=== PATIENT | male | born 1960 | race Caucasian/White ===

== ENCOUNTER 2017-03-04 21:07 | Observation (INO) | payer OTHER ==
[2017-03-04 21:26] LABS: % IMMATURE GRANULYOCYTES 0.5 % (0.0-1.1); ABSOLUTE IMMATURE GRANULOCYTES 0.05 10^3/uL (0.00-0.10); ADD DIFF? NO; ADD MORPH? NO; ADD SCAN? YES; FRAGMENT RBC FLAG 0 (0-99); HEMATOCRIT 40.8 % (40.0-51.0); HEMOGLOBIN 13.7 g/dL (13.7-17.5); LEFT SHIFT FLG 0 (0-99); LIPEMIA HEMOLYSIS FLAG 80 (0-99); MEAN CELL HEMOGLOBIN 29.4 pg (27.9-34.1); MEAN CELL HEMOGLOBIN CONCENTR. 33.6 g/dL (32.4-36.7); MEAN CELL VOLUME 87.6 fL (81.5-99.8); PLATELET CLUMPS FLAG 10 (0-99); PLATELET COUNT 333 10^3/uL (150-400); RED BLOOD CELL COUNT 4.66 10^6/uL (4.40-6.38); RED CELL DISTRIBUTION WIDTH 13.1 % (11.5-15.2)
[2017-03-04] MEDS ORDERED: ASPIRIN 81 MG CHEWABLE TAB PO ONE (21:29)
[2017-03-04] MEDS ORDERED: NITROGLYCERIN 0.4 MG BTL SL ONE ×2 (21:30→22:44)
--- NOTE | 2017-03-04 21:33 | EDPHY ---
H & P Stated Complaint: CP Time Seen by Provider: 03/04/17 21:18 HPI/ROS: CHIEF COMPLAINT: Chest pressure and tightness HISTORY OF PRESENT ILLNESS: Patient is a 56-year-old diabetic man who comes to the emergency department complaining of chest pressure and tightness for the last 2 days and now mild shortness of breath. He does not have any history of cardiac disease but both mom and dad in their 60s with heart attacks. He also travels frequently and was in [place] last week in [place] the week before. He intermittently has had leg swelling but no pain. He has not been febrile. He has not been coughing. He does not have any pulmonary disease history. He does have a history of renal cancer that was removed by surgery only in June of last year. He is not a smoker. REVIEW OF SYSTEMS: Constitutional: denies: chills, fever, recent illness, recent injury EENTM: denies: blurred vision, double vision, nose congestion Respiratory: See HPI Cardiac: See HPI Gastrointestinal/Abdominal: denies: abdominal pain, diarrhea, nausea, vomiting, blood streaked stools Genitourinary: denies: dysuria, frequency, hematuria, pain Musculoskeletal: denies: joint pain, muscle pain Skin: denies: lesions, rash, jaundice, bruising Neurological: denies: headache, numbness, paresthesia, tingling, dizziness, weakness Hematologic/Lymphatic: denies: blood clots, easy bleeding, easy bruising Immunologic/allergic: denies: HIV/AIDS, transplant EXAM: GENERAL: Well-appearing, well-nourished and in no acute distress. HEAD: Atraumatic, normocephalic. EYES: Pupils equal round and reactive to light, extraocular movements intact, sclera anicteric, conjunctiva are normal. ENT: TMs normal, nares patent, oropharynx clear without exudates. Moist mucous membranes. NECK: Normal range of motion, supple without lymphadenopathy or JVD. LUNGS: Breath sounds clear to auscultation bilaterally and equal. No wheezes rales or rhonchi. HEART: Regular rate and rhythm without murmurs, rubs or gallops. ABDOMEN: Soft, nontender, normoactive bowel sounds. No guarding, no rebound. No masses appreciated. BACK: No CVA tenderness, no spinal tenderness, step-offs or deformities EXTREMITIES: Normal range of motion, no pitting or edema. No clubbing or cyanosis. NEUROLOGICAL: Cranial nerves II through XII grossly intact. Normal speech, normal gait. 5/5 strength, normal movement in all extremities, normal sensation PSYCH: Normal mood, normal affect. SKIN: Warm, dry, normal turgor, no visible rashes or lesions. Source: Patient Exam Limitations: No limitations - Personal History Current Tetanus/Diphtheria Vaccine: Yes Current Tetanus Diphtheria and Acellular Pertussis (TDAP): Yes - Medical/Surgical History Hx Asthma: No Hx Chronic Respiratory Disease: No Hx Diabetes: Yes Hx Cardiac Disease: No Hx Renal Disease: Yes Hx Cirrhosis: No Hx Alcoholism: No Hx HIV/AIDS: No Hx Splenectomy or Spleen Trauma: No Other PMH: kidney CA, ortho surg/l knee DM - Family History Significant Family History: Heart disease - Social History Smoking Status: Never smoked Alcohol Use: Sober Drug Use: None Constitutional: Initial Vital Signs Temperature (C) 36.6 C 03/04/17 21:13 Heart Rate 99 03/04/17 21:13 Respiratory Rate 22 H 03/04/17 21:13 Blood Pressure 181/111 H 03/04/17 21:13 O2 Sat (%) 93 03/04/17 21:13 O2 Delivery Mode Nasal Cannula O2 (L/minute) 2 Allergies/Adverse Reactions: Penicillins Allergy (Severe, Verified 03/04/17 21:11) STOPPED BREATHING erythromycin base [Erythromycin Base] Allergy (Intermediate, Verified 03/04/17 21:11) Rash hydromorphone HCl [From Dilaudid] Allergy (Intermediate, Verified 03/04/17 21:11 ) Itching Sulfa (Sulfonamide Antibiotics) Allergy (Intermediate, Verified 03/04/17 21:11) Rash Home Medications: Medication Instructions Recorded Ascorbic Acid [Vitamin C 500 mg 1,000 mg PO DAILY 06/16/16 (*)] Atorvastatin Calcium [Lipitor 20 20 mg PO DAILY 06/16/16 mg (*)] Cholecalciferol Vit D3 [Vitamin D3 4,000 units PO DAILY 06/16/16 2000 units tab (OTC)] Esomeprazole Mag Trihydrate 40 mg PO DAILY 06/16/16 [Nexium] Glucosamine/Chondroitin 1 each PO DAILY 06/16/16 [Glucosamine/Chondroitin (*)] Herbals/Supplements -Info Only 1 ea PO DAILY 06/16/16 Magnesium Oxide [Magnesium Oxide 400 mg PO DAILY 06/16/16 400 mg (*)] [place]-3 Fatty Acids [Fish Oil 1000 2,000 mg PO DAILY 06/16/16 mg (*)] Vitamin B Complex [Super B-50 1 each PO DAILY 06/16/16 Complex] Insulin Glargine [Lantus 100 42 units SC HS 06/22/16 UNITS/ML (*)] Exenatide Microspheres [Bydureon 2 mg SQ SA 03/04/17 Pen] Lisinopril [Zestril 5 mg (*)] 5 mg PO DAILY 03/05/17 metFORMIN HCL [Glucophage 500 mg 500 mg PO BIDMEAL 03/05/17 (*)] Acetaminophen [Tylenol 325mg (*)] 650 mg PO Q4HRS PRN #0 tab 03/06/17 Prasugrel HCl [Effient 10mg (*)] 10 mg PO DAILY #30 tab 03/06/17 Medical Decision Making - Diagnostics EKG Interpretation: An EKG obtained and was read and documented in trace view. Please see trace view for full reading and report. Sinus rhythm, no acute ischemic changes ED Course/Re-evaluation: The patient's symptoms have improved. His blood pressure is improved. He still has mild tightness. I recommended admission for continued cardiac rule out and stress testing. He agrees with this plan. I have paged hospital service for admission. Differential Diagnosis: Partial list of the Differential diagnosis considered include but were not limited to; acute coronary disease, PE, and although unlikely based on the history and physical exam, I also considered pneumothorax, pneumonia, GERD, anxiety. I discussed these differential diagnoses and the plan with the patient as well as the usual and expected course. The patient understands that the diagnosis is provisional and that in medicine we are not always correct and that further workup is often warranted. Usual and customary warnings were given. All of the patient's questions were answered. The patient was instructed to return to the emergency department should the symptoms at all worsen or return, otherwise to followup with the physician as we discussed. - Data Points Laboratory Results: Laboratory Results 03/04/17 21:15 03/04/17 21:15 Medications Given: Discontinued Medications Aspirin (Aspirin) 162 mg PO EDNOW ONE Stop: 03/04/17 21:30 Last Admin: 03/04/17 21:34 Dose: 162 mg Aspirin Buffered (Aspirin Ec) 325 mg PO DAILY WILLIAN Stop: 09/01/17 08:59 Last Admin: 03/06/17 08:24 Dose: Not Given Diazepam (Valium) 5 mg PO ONCALL ONE Stop: 03/05/17 09:49 Last Admin: 03/05/17 10:26 Dose: 5 mg Diphenhydramine HCl (Benadryl) 25 mg PO ONCALL ONE Stop: 03/05/17 09:49 Last Admin: 03/05/17 10:27 Dose: 25 mg Sodium Chloride (Ns) 1,000 mls @ 100 mls/hr IV CONT WILLIAN Stop: 03/05/17 22:44 Last Admin: 03/05/17 13:49 Dose: 1,000 mls Magnesium Sulfate (Magnesium Sulf 2 Gm (Premix)) 50 mls @ 50 mls/hr IV ONCE ONE Stop: 03/06/17 08:56 Last Admin: 03/06/17 08:16 Dose: 50 mls Metoprolol Tartrate (Lopressor) 12.5 mg PO EDNOW ONE Stop: 03/04/17 22:43 Last Admin: 03/05/17 00:36 Dose: Not Given Metoprolol Tartrate (Lopressor) 12.5 mg PO ONCE ONE Stop: 03/05/17 00:27 Last Admin: 03/05/17 00:48 Dose: 12.5 mg Nitroglycerin (Nitrostat) 0.4 mg SL EDNOW ONE Stop: 03/04/17 21:31 Last Admin: 03/04/17 21:35 Dose: 0.4 mg Nitroglycerin (Nitrostat) 0.4 mg SL EDNOW ONE Stop: 03/04/17 22:45 Last Admin: 03/04/17 22:48 Dose: 0.4 mg Prasugrel (Effient) 60 mg PO ONCE ONE Stop: 03/05/17 12:36 Last Admin: 03/05/17 13:49 Dose: Not Given Departure - Departure Disposition: [facility] Acute Clinical Impression: Chest pain Qualifiers: Chest pain type: unspecified Qualified Code(s): R07.9 - Chest pain, unspecified Condition: Fair
[2017-03-04 21:36] LABS: ANION GAP 14 mEq/L (8-16); ATYPICAL LYMPHOCYTE FLAG 150 (0-99); CALCIUM 9.6 mg/dL (8.5-10.4); CARBON DIOXIDE 23 mEq/l (22-31); CHLORIDE 100 mEq/L (97-110); CREATININE 1.6 mg/dL (0.7-1.3); GLOMERULAR FILTRATION RATE 45; GLUCOSE 341 mg/dL (70-100); POTASSIUM 4.4 mEq/L (3.5-5.2); SODIUM 137 mEq/L (134-144)
[2017-03-04 21:47] LABS: SCAN NEGATIVE; TROPONIN I < 0.012 ng/mL (0-0.034)
[2017-03-04 22:05] LABS: INR 0.98 (0.83-1.16); PROTIME(PATIENT) 12.9 SEC (12.0-15.0)
[2017-03-04 22:06] LABS: ALBUMIN 4.4 g/dL (3.5-5.0); APTT 29.7 SEC (23.0-38.0); BILIRUBIN,TOTAL 1.6 mg/dL (0.1-1.4); BILIRUBIN-CONJUGATED 0.6 mg/dL (0.0-0.5); TOTAL PROTEIN 7.9 g/dL (6.3-8.2)
[2017-03-04] MEDS ORDERED: METOPROLOL TARTRATE 25 MG TAB PO ONE (22:42)
[2017-03-04] MEDS ORDERED: NITROGLYCERIN 0.4 MG BTL SL PRN (23:08)
[2017-03-05] MEDS ORDERED: ACETAMINOPHEN 325 MG TAB PO PRN (00:22)
[2017-03-05] MEDS ORDERED: ONDANSETRON DISINTEGRATING 4 MG TAB PO PRN (00:22)
[2017-03-05] MEDS ORDERED: ONDANSETRON 4 MG/2 ML VIAL IVP PRN (00:22)
[2017-03-05] MEDS ORDERED: METOPROLOL TARTRATE 25 MG TAB PO ONE (00:26)
[2017-03-05] MEDS ORDERED: NITROGLYCERIN 0.4 MG BTL SL PRN (00:26)
--- NOTE | 2017-03-05 00:33 | PDGENHP ---
History and Physical - Chief Complaint Acute chest pain - History of Present Illness PCP: Dr. Paz Primary urologist: Dr. Kumar HPI: 56-year-old male presenting with acute chest pain characterized as pressure and tightness located in his central chest with associated shortness of breath, pain located in his left shoulder radiating down his left arm with subjective weakness in his left hand and paresthesias in his bilateral feet. Onset of symptoms was 2 days ago, occurring at rest, duration has been fairly constant thereafter with escalation of symptoms on the evening prior to this presentation. He reports that the chest discomfort has been significantly alleviated by sublingual nitroglycerin as well as full-dose aspirin but the left arm deep discomfort remains. He denies any overt pain in the posterior aspect of his neck and he denies any recent trauma to the neck chest or extremity. He reports that he is not particularly physically active at baseline and does not significantly exert himself but he does ambulate very regularly and does not experience any chest discomfort. He has recently re-initiated his metformin, avoid nonsteroidal anti- inflammatory medications, has been taking full-dose aspirin at home. History Information - Allergies/Home Medication List Allergies/Adverse Reactions: Penicillins Allergy (Severe, Verified 03/04/17 21:11) STOPPED BREATHING erythromycin base [Erythromycin Base] Allergy (Intermediate, Verified 03/04/17 21:11) Rash hydromorphone HCl [From Dilaudid] Allergy (Intermediate, Verified 03/04/17 21:11 ) Itching Sulfa (Sulfonamide Antibiotics) Allergy (Intermediate, Verified 03/04/17 21:11) Rash Home Medications: Ascorbic Acid [Vitamin C 500 mg (*)] 1,000 mg PO DAILY 06/16/16 [Last Taken ] Aspirin [Aspirin 81mg (*)] 81 mg PO DAILY 06/16/16 [Last Taken 07/16/16] Atorvastatin Calcium [Lipitor 20 mg (*)] 20 mg PO DAILY 06/16/16 [Last Taken ] Cholecalciferol Vit D3 [Vitamin D3 2000 units tab (OTC)] 4,000 units PO DAILY [Last Taken 07/16/16] Esomeprazole Mag Trihydrate [Nexium] 40 mg PO DAILY 06/16/16 [Last Taken ] Glucosamine/Chondroitin [Glucosamine/Chondroitin (*)] 1 each PO DAILY 06/16/16 [ Last Taken 07/16/16] Herbals/Supplements -Info Only 1 ea PO DAILY 06/16/16 [Last Taken 07/16/16] Lisinopril [Zestril 10 mg (*)] 10 mg PO HS 06/16/16 [Last Taken 07/18/16] Magnesium Oxide [Magnesium Oxide 400 mg (*)] 400 mg PO DAILY 06/16/16 [Last Taken 07/16/16] [place]-3 Fatty Acids [Fish Oil 1000 mg (*)] 2,000 mg PO DAILY 06/16/16 [Last Taken 07/16/16] Vitamin B Complex [Super B-50 Complex] 1 each PO DAILY 06/16/16 [Last Taken ] Insulin Glargine [Lantus 100 UNITS/ML (*)] 42 units SC HS 06/22/16 [Last Taken 07/18/16] Bydureon Pen 03/04/17 [Last Taken Unknown] I have personally reviewed and updated: family history, medical history, social history, surgical history - Past Medical History diabetes type 2 ( With poor control, most recent hemoglobin A1c 9.6%), GERD Additional medical history: renal cell carcinoma. History of diverticulitis. History of chronic kidney disease baseline creatinine 1.11.5. History of C diff colitis - Surgical History Additional surgical history: right partial nephrectomy. Knee surgery - Family History Additional family history: father with TN at age 45, mother with TN at age 61 - Social History Smoking Status: Never smoked Alcohol Use: Occasionally Drug Use: None Additional social history: normally independent in ADLs, travels extensively for work Review of Systems ROS: 10pt was reviewed & negative except for what was stated in HPI & below EENMT: Reports: sore throat Cardiac: Reports: chest pain Respiratory: Reports: shortness of breath Muscolosketal: Reports: other ( left upper extremity pain) Neurological: Reports: paresthesia ( bilateral feet), weakness ( subjective left upper extremity) Physical Exam Temp Pulse Resp BP Pulse Ox 36.6 C 87 16 127/90 H 94 03/04/17 23:55 03/04/17 23:55 03/04/17 23:55 03/04/17 23:55 03/04/17 23:55 O2 (L/minute) 2 Constitutional: no apparent distress, appears nourished, not in pain Eyes: PERRL, anicteric sclera, EOMI Ears, Nose, Mouth, Throat: moist mucous membranes, hearing normal, ears appear normal, no oral mucosal ulcers Cardiovascular: systolic murmur ( 1/6 at the sternum), No irregularly irregular , No tachycardia, No edema Respiratory: no respiratory distress, no rales or rhonchi, clear to auscultation Gastrointestinal: normoactive bowel sounds, soft, non-tender abdomen, no palpable masses Genitourinary: no bladder fullness, no bladder tenderness Skin: other ( no vesicular lesions or rash over the left upper extremity or chest) Musculoskeletal: other ( full range of motion left shoulder without any pain elicited, no tenderness to palpation over the left sub a.c., full range of motion of the neck without any pain elicited, no tenderness to palpation over the left trapezius or paraspinal muscles in the cervical area, full range of motion left elbow and left wrist without any pain elicited, no tenderness to palpation in the left forearm muscles or the left biceps) Neurologic: AAOx3, sensation intact bilaterally, No weakness ( motor strength 5/ 5 bilateral upper and lower extremities) Psychiatric: interacting appropriately, not anxious, not encephalopathic, thought process linear Lymph, Heme, Immunologic: no cervical LAD, other ( less than 1 cm tender bilateral submandibular lymph nodes) Lab Data & Imaging Review 03/04/17 21:15 03/04/17 21:15 WBC 9.45 10^3/uL (3.80-9.50) 03/04/17 21:15 RBC 4.66 10^6/uL (4.40-6.38) 03/04/17 21:15 Hgb 13.7 g/dL (13.7-17.5) 03/04/17 21:15 Hct 40.8 % (40.0-51.0) 03/04/17 21:15 MCV 87.6 fL (81.5-99.8) 03/04/17 21:15 MCH 29.4 pg (27.9-34.1) 03/04/17 21:15 MCHC 33.6 g/dL (32.4-36.7) 03/04/17 21:15 RDW 13.1 % (11.5-15.2) 05/14/17 21:15 Plt Count 333 10^3/uL (150-400) 03/04/17 21:15 MPV 9.0 fL (8.7-11.7) 03/04/17 21:15 Neut % (Auto) 46.0 % (39.3-74.2) 03/04/17 21:15 Lymph % (Auto) 41.7 % (15.0-45.0) 03/04/17 21:15 [place] % (Auto) 9.3 % (4.5-13.0) 03/04/17 21:15 Eos % (Auto) 2.0 % (0.6-7.6) 03/04/17 21:15 Baso % (Auto) 0.5 % (0.3-1.7) 03/04/17 21:15 Nucleat RBC Rel Count 0.0 % (0.0-0.2) 03/04/17 21:15 Absolute Neuts (auto) 4.34 10^3/uL (1.70-6.50) 03/04/17 21:15 Absolute Lymphs (auto) 3.94 10^3/uL (1.00-3.00) H 03/04/17 21:15 Absolute Monos (auto) 0.88 10^3/uL (0.30-0.80) H 03/04/17 21:15 Absolute Eos (auto) 0.19 10^3/uL (0.03-0.40) 03/04/17 21:15 Absolute Basos (auto) 0.05 10^3/uL (0.02-0.10) 03/04/17 21:15 Absolute Nucleated RBC 0.00 10^3/uL (0-0.01) 03/04/17 21:15 Immature Gran % 0.5 % (0.0-1.1) 03/04/17 21:15 Immature Gran # 0.05 10^3/uL (0.00-0.10) 03/04/17 21:15 PT 12.9 SEC (12.0-15.0) 03/04/17 21:15 INR 0.98 (0.83-1.16) 03/04/17 21:15 APTT 29.7 SEC (23.0-38.0) 05/14/17 21:15 D-Dimer < 0.27 ug/mLFEU (0.00-0.50) 03/04/17 21:15 Sodium 137 mEq/L (134-144) 03/04/17 21:15 Potassium 4.4 mEq/L (3.5-5.2) 03/04/17 21:15 Chloride 100 mEq/L (97-110) 03/04/17 21:15 Carbon Dioxide 23 mEq/l (22-31) 03/04/17 21:15 Anion Gap 14 mEq/L (8-16) 03/04/17 21:15 BUN 22 mg/dL (7-23) 03/04/17 21:15 Creatinine 1.6 mg/dL (0.7-1.3) H 03/04/17 21:15 Estimated GFR 45 03/04/17 21:15 Glucose 341 mg/dL (70-100) H 03/04/17 21:15 Calcium 9.6 mg/dL (8.5-10.4) 03/04/17 21:15 Total Bilirubin 1.6 mg/dL (0.1-1.4) H 03/04/17 21:15 Conjugated Bilirubin 0.6 mg/dL (0.0-0.5) H 03/04/17 21:15 Unconjugated Bilirubin 1.0 mg/dL (0.0-1.1) 03/04/17 21:15 AST 19 IU/L (17-59) 03/04/17 21:15 ALT 31 IU/L (21-72) 03/04/17 21:15 Alkaline Phosphatase 109 IU/L (38-126) 03/04/17 21:15 Troponin I < 0.012 ng/mL (0-0.034) 03/04/17 21:15 Total Protein 7.9 g/dL (6.3-8.2) 03/04/17 21:15 Albumin 4.4 g/dL (3.5-5.0) 03/04/17 21:15 Lipase 213.0 IU/L (23-300) 03/04/17 21:15 Visualized and Interpreted Chest x-ray results: Yes Chest X-Ray results: other ( mild atelectasis right middle lobe) Visualized and Interpreted EKG results: Yes EKG Interpretation: Positive for: other ( previous EKG demonstrating Q-wave and T-wave inversion in lead 3) Assessment & Plan Assessment: 56-year-old male presenting with acute chest pain in the setting of poorly controlled diabetes mellitus, chronic kidney disease stage 3 Plan: 1. Chest pain. Acute, new problem this provider, further workup indicated. Potential etiologies include acute coronary syndrome / unstable angina versus cervical radiculopathy versus gastroesophageal reflux disease. - patient's presentation is concerning for unstable angina given his significant risk factors of diabetes, chronic kidney disease, positive family history as well as pain occurring at rest, relieved with sublingual nitroglycerin -patient's chest discomfort has been significantly alleviated with 3 doses of sublingual nitroglycerin and will hold on placing him on a nitroglycerin drip unless his chest discomfort returns an escalates - given his chronic kidney disease and resolution of chest discomfort, we will cycle his cardiac enzymes and attempt to risk stratify him with a nuclear medicine stress test in a.m. -that being said, I will contact Cardiology and request consultation to help us determine whether invasive versus noninvasive risk stratification is appropriate -continue full-dose aspirin, give low-dose beta-lu 2. Left upper extremity pain. Acute, new problem this provider, further workup indicated. It is difficult to delineate whether patient's left upper extremity symptoms are related to his chest discomfort presentation versus isolated and potentially secondary to cervical radiculopathy -get cervical MRI to further define whether radiculopathy is more likely - further pain/treatment recommendations to follow after MRI -get occupational therapy given subjective weakness, no focal weakness on exam 3. Chronic kidney disease stage 3. baseline creatinine 1.1-1.5, currently 1.6, patient is at risk of contrast induced nephropathy if he does undergo cardiac catheterization -give IV normal saline overnight to pre hydrate -hold metformin, recommend holding moving forward until creatinine level is at a safer level 4. Renal cell carcinoma. Reviewed outside records including 07/25/[address] Nneka Schaeffer, reporting the patient had renal cell carcinoma and underwent right-sided partial nephrectomy with resultant chronic kidney disease as well as discontinuation of metformin at that time -the patient has outpatient labs and imaging in the near future, he is requesting that we attempt to obtain these studies during this presentation, his partner will bring the orders from the Urology office tomorrow so we are better able to services patient's request if possible 5. Diabetes mellitus. Uncontrolled with hemoglobin A1c 9.6% in December of 2016, continue Lantus, may require outpatient up titration now that metformin is being held Diet. Diabetic, NPO in a.m. in case catheterization is indicated Prophylaxis. Low risk patient, SCDs Code. Dhruv Feliz is MPOA Disposition. Anticipated discharge is 03/05/2017, pending further workup as outlined above. I have discussed patient's presentation with Dr. Jarvis Gardner, we both agree that given patient's concerning symptoms and potential for nitroglycerin drip, PCU level of care is appropriate at this time.
--- NOTE | 2017-03-05 00:47 | CPEKG ---
Heart Rate: 76 RR Interval: 789 P-R Interval: 168 QRSD Interval: 86 QT Interval: 384 QTC Interval: 432 P [place]: 33 QRS [place]: 27 T Wave [place]: 22 EKG Severity - NORMAL ECG - EKG Impression: SINUS RHYTHM Electronically Signed By: Val Borges 05-Mar-2017 07:00:29
[2017-03-05] MEDS: NS 1,000 ML IV SCH ×2 (00:48→07:05)
[2017-03-05 04:14] LABS: % IMMATURE GRANULYOCYTES 0.5 % (0.0-1.1); ABSOLUTE IMMATURE GRANULOCYTES 0.04 10^3/uL (0.00-0.10); ADD DIFF? NO; ADD MORPH? NO; ADD SCAN? YES; FRAGMENT RBC FLAG 0 (0-99); HEMATOCRIT 35.5 % (40.0-51.0); HEMOGLOBIN 11.9 g/dL (13.7-17.5); LEFT SHIFT FLG 0 (0-99); LIPEMIA HEMOLYSIS FLAG 80 (0-99); MEAN CELL HEMOGLOBIN 29.3 pg (27.9-34.1); MEAN CELL HEMOGLOBIN CONCENTR. 33.5 g/dL (32.4-36.7); MEAN CELL VOLUME 87.4 fL (81.5-99.8); MEAN PLATELET VOLUME 9.1 fL (8.7-11.7); PLATELET CLUMPS FLAG 0 (0-99); PLATELET COUNT 264 10^3/uL (150-400); RED BLOOD CELL COUNT 4.06 10^6/uL (4.40-6.38)
[2017-03-05 04:19] LABS: ATYPICAL LYMPHOCYTE FLAG 170 (0-99)
[2017-03-05 04:20] LABS: ALANINE AMINOTRANSFERASE 25 IU/L (21-72); ALBUMIN 3.5 g/dL (3.5-5.0); ALKALINE PHOSPHATASE 73 IU/L (38-126); ANION GAP 11 mEq/L (8-16); ASPARTATE AMINOTRANSFERASE 13 IU/L (17-59); BILIRUBIN,TOTAL 1.2 mg/dL (0.1-1.4); CARBON DIOXIDE 23 mEq/l (22-31); CHLORIDE 105 mEq/L (97-110); CHOLESTEROL 123 mg/dL (140-220); CHOLESTEROL/HDL RATIO 3.32 RATIO (1.00-4.97); CREATININE 1.4 mg/dL (0.7-1.3); GLOMERULAR FILTRATION RATE 52; GLUCOSE 160 mg/dL (70-100); HIGH DENSITY LIPOPROTEIN 37 mg/dL (40-65); LDL/HDL RATIO 1.68 RATIO (1.00-3.64); LOW DENSITY LIPOPROTEIN 62 mg/dL (80-100); MAGNESIUM 1.5 mg/dL (1.6-2.3); NON-HIGH DENSITY LIPOPROTEIN 86 mg/dL (90-129); SODIUM 139 mEq/L (134-144); TOTAL PROTEIN 6.5 g/dL (6.3-8.2); TRIGLYCERIDE 124 mg/dL (40-150); VERY LOW DENSITY LIPOPROTEINS 24 mg/dL (8-25)
[2017-03-05 04:27] LABS: TROPONIN I < 0.012 ng/mL (0-0.034)
[2017-03-05 05:02] LABS: SCAN NEGATIVE
--- NOTE | 2017-03-05 09:35 | CPEKG ---
Heart Rate: 96 RR Interval: 625 P-R Interval: 172 QRSD Interval: 76 QT Interval: 344 QTC Interval: 435 P [place]: 36 QRS [place]: 29 T Wave [place]: 21 EKG Severity - NORMAL ECG - EKG Impression: SINUS RHYTHM Electronically Signed By: Val Borges 05-Mar-2017 17:10:25
[2017-03-05] MEDS ORDERED: DIAZEPAM 5 MG TAB PO ONE (09:48)
[2017-03-05] MEDS ORDERED: diphenhydrAMINE 25 MG CAP PO ONE (09:48)
[2017-03-05] MEDS ORDERED: LIDOCAINE 1% 30 ML SDV ONE (10:09)
[2017-03-05] MEDS ORDERED: IOPAMIDOL (ISOVUE-370) 150 ML BTL IV ONE ×3 (10:10→11:56)
[2017-03-05] MEDS ORDERED: fentaNYL 100 MCG/2 ML INJ ONE ×2 (10:10→11:15)
[2017-03-05] MEDS ORDERED: MIDAZOLAM 2 MG/2 ML VIAL ONE ×3 (10:10→11:26)
--- NOTE | 2017-03-05 10:16 | PDCARCONS ---
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 Arm discomfort has been noted for the past several (2) weeks. Patient states that the left arm discomfort is "bone pain". No musculoskeletal discomfort has been identified, however, with neck flexion, there was some of the discomfort reproduced. No nausea or emesis has been noted. No diaphoresis, no fevers, chills, constipation, or diarrhea. Overall, outside of the arm pains and the newly noted chest discomfort, the patient has been feeling well. 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 Chest discomfort is not a "pain", but a pressure - "...like an elephant sitting on my chest...". Remainder of the 12 point review of systems was unremarkable History Information - Allergies/Home Medication List Allergies/Adverse Reactions: Penicillins Allergy (Severe, Verified 03/04/17 21:11) STOPPED BREATHING erythromycin base [Erythromycin Base] Allergy (Intermediate, Verified 03/04/17 21:11) Rash hydromorphone HCl [From Dilaudid] Allergy (Intermediate, Verified 03/04/17 21:11 ) Itching Sulfa (Sulfonamide Antibiotics) Allergy (Intermediate, Verified 03/04/17 21:11) Rash Home Medications: Ascorbic Acid [Vitamin C 500 mg (*)] 1,000 mg PO DAILY 06/16/16 [Last Taken ] Aspirin [Aspirin 81mg (*)] 81 mg PO DAILY 06/16/16 [Last Taken 03/04/17] Atorvastatin Calcium [Lipitor 20 mg (*)] 20 mg PO DAILY 06/16/16 [Last Taken ] Cholecalciferol Vit D3 [Vitamin D3 2000 units tab (OTC)] 4,000 units PO DAILY [Last Taken 03/04/17] Esomeprazole Mag Trihydrate [Nexium] 40 mg PO DAILY 06/16/16 [Last Taken ] Glucosamine/Chondroitin [Glucosamine/Chondroitin (*)] 1 each PO DAILY 06/16/16 [ Last Taken 03/04/17] Herbals/Supplements -Info Only 1 ea PO DAILY 06/16/16 [Last Taken 07/16/16] Magnesium Oxide [Magnesium Oxide 400 mg (*)] 400 mg PO DAILY 06/16/16 [Last Taken 03/04/17] [place]-3 Fatty Acids [Fish Oil 1000 mg (*)] 2,000 mg PO DAILY 06/16/16 [Last Taken 03/04/17] Vitamin B Complex [Super B-50 Complex] 1 each PO DAILY 06/16/16 [Last Taken ] Insulin Glargine [Lantus 100 UNITS/ML (*)] 42 units SC HS 06/22/16 [Last Taken 03/04/17] Exenatide Microspheres [Bydureon Pen] 2 mg SQ SA 03/04/17 [Last Taken 03/03/17] Lisinopril [Zestril 5 mg (*)] 5 mg PO DAILY 03/05/17 [Last Taken 03/04/17] metFORMIN HCL [Glucophage 500 mg (*)] 500 mg PO BIDMEAL 03/05/17 [Last Taken 18:00] I have personally reviewed and updated: family history, medical history, social history, surgical history - Past Medical History diabetes type 2 Additional medical history: renal insufficiency - Surgical History Additional surgical history: nephrectomy - Family History Positive for: father with history of CAD younger than 55, mother with history of CAD younger than 65, myocardial infarction - Social History Smoking Status: Never smoked Alcohol Use: Occasionally Drug Use: None Cardiac History - Cardiac History Cardiac Risk Factors: diabetes mellitus, family history of premature CAD, male Timing/Duration: Days Severity: moderate Severity Scale: 7 Location: substernal, epigastric, shoulder Activities at Onset: none Modifying Factors: improves with: rest Associated Symptoms: denies symptoms REINIER Risk Evaluation age greater or equal to 65: no greater or equal to 3 CAD risk factors: yes known CAD(stenosis greater or eqaul to 50%): no ASA use in past 7 days: no severe angina(greater or equal to 2 episodes in 24hrs): no EKG ST changes greater or equal to 0.5mm: no positive cardiac marker: no Total Score: 1 REINIER Score: 4.7% risk Physical Exam Temp Pulse Resp BP Pulse Ox 36.4 C 73 11 L 133/88 H 97 03/05/17 07:45 03/05/17 07:45 03/05/17 07:45 03/05/17 07:45 03/05/17 07:45 O2 (L/minute) 2 Constitutional: no apparent distress, appears nourished, not in pain Eyes: PERRL Ears, Nose, Mouth, Throat: moist mucous membranes, hearing normal Cardiovascular: regular rate and rhythym, no murmur, rub, or gallop, pulses symmetric bilaterally, No diastolic murmur, No JVD, No edema Peripheral Pulses: 2+: dorsalis-pedis (R), dorsalis-pedis (L) Respiratory: no respiratory distress, no rales or rhonchi, clear to auscultation Gastrointestinal: normoactive bowel sounds Skin: warm, no induration, No rash Musculoskeletal: full muscle strength, no muscle tenderness, normal joint ROM Neurologic: AAOx3, sensation intact bilaterally, CN II-XII Intact Psychiatric: interacting appropriately, not anxious, not encephalopathic Lab and Imaging 03/05/17 03:50 03/05/17 03:50 WBC 7.49 10^3/uL (3.80-9.50) 03/05/17 03:50 RBC 4.06 10^6/uL (4.40-6.38) L 03/05/17 03:50 Hgb 11.9 g/dL (13.7-17.5) L 03/05/17 03:50 Hct 35.5 % (40.0-51.0) L 03/05/17 03:50 MCV 87.4 fL (81.5-99.8) 03/05/17 03:50 MCH 29.3 pg (27.9-34.1) 03/05/17 03:50 MCHC 33.5 g/dL (32.4-36.7) 03/05/17 03:50 RDW 13.0 % (11.5-15.2) 03/05/17 03:50 Plt Count 264 10^3/uL (150-400) D 03/05/17 03:50 MPV 9.1 fL (8.7-11.7) 03/05/17 03:50 Neut % (Auto) 44.1 % (39.3-74.2) 03/05/17 03:50 Lymph % (Auto) 40.9 % (15.0-45.0) 03/05/17 03:50 Divide % (Auto) 10.3 % (4.5-13.0) 03/05/17 03:50 Eos % (Auto) 3.5 % (0.6-7.6) 03/05/17 03:50 Baso % (Auto) 0.7 % (0.3-1.7) 03/05/17 03:50 Nucleat RBC Rel Count 0.0 % (0.0-0.2) 03/05/17 03:50 Absolute Neuts (auto) 3.31 10^3/uL (1.70-6.50) 03/05/17 03:50 Absolute Lymphs (auto) 3.06 10^3/uL (1.00-3.00) H 03/05/17 03:50 Absolute Monos (auto) 0.77 10^3/uL (0.30-0.80) 03/05/17 03:50 Absolute Eos (auto) 0.26 10^3/uL (0.03-0.40) 03/05/17 03:50 Absolute Basos (auto) 0.05 10^3/uL (0.02-0.10) 03/05/17 03:50 Absolute Nucleated RBC 0.00 10^3/uL (0-0.01) 03/05/17 03:50 Immature Gran % 0.5 % (0.0-1.1) 03/05/17 03:50 Immature Gran # 0.04 10^3/uL (0.00-0.10) 03/05/17 03:50 PT 12.9 SEC (12.0-15.0) 03/04/17 21:15 INR 0.98 (0.83-1.16) 03/04/17 21:15 APTT 29.7 SEC (23.0-38.0) 03/04/17 21:15 D-Dimer < 0.27 ug/mLFEU (0.00-0.50) 03/04/17 21:15 Sodium 139 mEq/L (134-144) 03/05/17 03:50 Potassium 4.0 mEq/L (3.5-5.2) 03/05/17 03:50 Chloride 105 mEq/L (97-110) 03/05/17 03:50 Carbon Dioxide 23 mEq/l (22-31) 03/05/17 03:50 Anion Gap 11 mEq/L (8-16) 03/05/17 03:50 BUN 19 mg/dL (7-23) 03/05/17 03:50 Creatinine 1.4 mg/dL (0.7-1.3) H 03/05/17 03:50 Estimated GFR 52 03/05/17 03:50 Glucose 160 mg/dL (70-100) H 03/05/17 03:50 Calcium 9.0 mg/dL (8.5-10.4) 03/05/17 03:50 Magnesium 1.5 mg/dL (1.6-2.3) L 03/05/17 03:50 Total Bilirubin 1.2 mg/dL (0.1-1.4) 03/05/17 03:50 Conjugated Bilirubin 0.6 mg/dL (0.0-0.5) H 03/04/17 21:15 Unconjugated Bilirubin 1.0 mg/dL (0.0-1.1) 03/04/17 21:15 AST 13 IU/L (17-59) L 03/05/17 03:50 ALT 25 IU/L (21-72) 03/05/17 03:50 Alkaline Phosphatase 73 IU/L (38-126) 03/05/17 03:50 Troponin I < 0.012 ng/mL (0-0.034) 03/05/17 03:50 Total Protein 6.5 g/dL (6.3-8.2) 03/05/17 03:50 Albumin 3.5 g/dL (3.5-5.0) 03/05/17 03:50 Triglycerides 124 mg/dL (40-150) 03/05/17 03:50 Cholesterol 123 mg/dL (140-220) L 03/05/17 03:50 Cholesterol Risk Factr 0.5 (0.2-1.0) 03/05/17 03:50 LDL Cholesterol, Calc 62 mg/dL (80-100) L 03/05/17 03:50 LDL Risk Factor 0.8 (0.2-1.0) 03/05/17 03:50 VLDL Cholesterol 24 mg/dL (8-25) 03/05/17 03:50 Non-HDL Cholesterol 86 mg/dL (90-129) L 03/05/17 03:50 HDL Cholesterol 37 mg/dL (40-65) L 03/05/17 03:50 LDL/HDL Ratio 1.68 RATIO (1.00-3.64) 03/05/17 03:50 Cholesterol/HDL Ratio 3.32 RATIO (1.00-4.97) 03/05/17 03:50 Lipase 213.0 IU/L (23-300) 03/04/17 21:15 Visualized and Interpreted Chest x-ray results: Yes Chest X-ray Interpretation: no infiltrate, normal, normal heart size Visualized and Interpreted EKG results: Yes EKG Interpretation: Positive for: normal sinsus rhythm Telemetry: normal sinus rhythm A/P Assessment: Patient is a 56 y/o male with history of renal cell carcinoma s/p recent right partial nephrectomy, DM (on insulin), but no HTN, HLP, or known CAD, who presented to [facility] with complaints of substernal chest discomfort with radiation into the left shoulder. Arm symptoms preceded the chest discomfort by about two weeks. Chest discomfort was noted over the past 48 hours. No cardiac biomarker elevation noted. No ECG changes noted. At present, the patient is asymptomatic with respect to the chest discomfort, but the left arm discomfort continues to be noted. Concerns about the poor DM control, and the strong, premature family history for CAD (mother and father both). Plan: Discussion about non invasive stress testing, but given risks (age, sex, family history, DM, and renal insufficiency), the angiogram is a better assessment for this relatively higher risk patient. Risks and benefits of the angiogram procedure were discussed with patient and partner (over the phone). Further recommendations to follow.
[2017-03-05] MEDS: ASPIRIN EC 325 MG TAB PO SCH (10:27)
--- NOTE | 2017-03-05 10:29 | HOSPPROG ---
Hospitalist Progress Note Assessment/Plan: 56-year-old male presenting with acute chest pain in the setting of poorly controlled diabetes mellitus, chronic kidney disease stage 3 Plan: 1. Chest pain -I discussed the case with Dr. Dominguez who plans to take the patient for cath later today 2. Left upper extremity pain -query referred pain from cardiac etiology -doubt radiculopathy given non-dermatomal distribution -doubt malignancy related bone pain the setting of a normal alk phos -will defer MRI pending results of cath 3. Chronic kidney disease stage 3. baseline creatinine 1.1-1.5, currently 1.4, patient is at risk of contrast induced nephropathy if he does undergo cardiac catheterization -hold metformin, recommend holding moving forward until creatinine level is at a safer level 4. Renal cell carcinoma. Reviewed outside records including 07/25/[address] Nneka Schaeffer, reporting the patient had renal cell carcinoma and underwent right-sided partial nephrectomy with resultant chronic kidney disease as well as discontinuation of metformin at that time -the patient has outpatient labs and imaging in the near future, he is requesting that we attempt to obtain these studies during this presentation, his partner will bring the orders from the Urology office tomorrow so we are better able to services patient's request if possible 5. Diabetes mellitus. Uncontrolled with hemoglobin A1c 9.6% in December of 2016, continue Lantus, may require outpatient up titration now that metformin is being held Prophylaxis. Low risk patient, SCDs Code. Full, Dhruv kemp is MPOA Disposition pending results of cath Subjective: no chest pain. continues to have deep "bone pain in left arm/forarm ". pain is described as dull and does not radiate along a specific dermatomal distribution Objective: Vital Signs Temp Pulse Resp BP Pulse Ox 36.4 C 73 11 L 133/88 H 97 03/05/17 07:45 03/05/17 07:45 03/05/17 07:45 03/05/17 07:45 03/05/17 07:45 Laboratory Results 03/05/17 03:50 03/05/17 03:50 03/04/17 03/05/17 03/06/17 05:59 05:59 05:59 Intake Total 900 Balance 900 PT 12.9 SEC (12.0-15.0) 03/04/17 21:15 INR 0.98 (0.83-1.16) 03/04/17 21:15 - Physical Exam Constitutional: no apparent distress, appears nourished, not in pain Cardiovascular: regular rate and rhythym, no murmur, rub, or gallop Respiratory: no respiratory distress, no rales or rhonchi, clear to auscultation Gastrointestinal: normoactive bowel sounds, soft, non-tender abdomen, no palpable masses Genitourinary: no bladder fullness, no bladder tenderness, no renal bruits Skin: no rashes or abrasions, no fluctuance, no induration Musculoskeletal: full muscle strength, no muscle tenderness, normal joint ROM ( in left elbow) Neurologic: AAOx3, CN II-XII Intact, No weakness, No numbness (in left hand), No facial droop ICD10 Worksheet Patient Problems: Problems Problem Status Onset Chest pain Acute C. difficile diarrhea Acute 07/24/16 Right renal mass Acute
[2017-03-05] MEDS ORDERED: NITROGLYCERIN 1,500 MCG/15 ML VIAL MISC ONE (11:15)
[2017-03-05] MEDS ORDERED: BIVALIRUDIN 250 MG/5 ML VIAL IV ONE (11:15)
--- NOTE | 2017-03-05 12:09 | PDDXCAT ---
Diagnostic Cath Note - . Date: 03/05/17 Play Writer: Alberto Indication: Class III or IV angina, which improves to class I/II w medical therapy - Procedure Access: right groin Procedure: left heart catheterization, coronary angiography, left ventriculogram - Materials Left Heart Cath size: 6F Left Heart Cath materials: standard multipack (JL4, JR4, pigtail) - Findings-Left Heart Catheterization LM: Short, bifurcation into the LAD and LCX vessels. No luminal irregularities were noted to the LM system LAD: Medium to large diameter vessel with smallish first Diag and principal second Diag. There was a >75% stenosis just proximal to the second Diag. Lengthy LAD to the apex (wrap around) with mild distal tortuosity noted. LCX: Medium sized LCX with principal first OM and smallish OM2 and OM3. Likely dominant vessel with supply to the PDA territory. No appreciable luminal irregularities were noted. RCA: Small to medium sized vessel. Tortuosity distally without luminal irregularities noted. EDP: 23 mm Hg LVEF: 65% Wall motion: normal Complications: none Estimated blood loss: <50ml Closure method: Angioseal Assessment: 56 y/o male with DM (poor control), renal cell carcinoma, and strong , premature CAD to the family with complaints of chest pains/pressure with left arm discomfort. Critical lesion to the mid LAD was noted. Normal LVEF. 75 cc of contrast used for the diagnostic angiogram. Plan: Dr. Mariano Emmanuel to perform IVUS to the suspect lesion in the mid LAD Intervention: Pending assessment of the LAD lesion. Patient Problems: Problems Problem Status Onset Chest pain Acute C. difficile diarrhea Acute 07/24/16 Right renal mass Acute
[2017-03-05] MEDS ORDERED: PRASUGREL HCL 10 MG TAB ONE (12:12)
[2017-03-05] MEDS ORDERED: ATROPINE SULFATE 1 MG/10 ML SYR IVP PRN (12:35)
[2017-03-05] MEDS ORDERED: LORazepam 2 MG/ML INJ IVP PRN (12:35)
[2017-03-05] MEDS ORDERED: TEMAZEPAM 15 MG CAP PO PRN (12:35)
[2017-03-05] MEDS ORDERED: PRASUGREL HCL 10 MG TAB PO ONE (12:35)
[2017-03-05] MEDS ORDERED: NS 1,000 ML IV SCH (12:45)
--- NOTE | 2017-03-05 13:21 | CPEKG ---
Heart Rate: 62 RR Interval: 968 P-R Interval: 176 QRSD Interval: 78 QT Interval: 404 QTC Interval: 411 P [place]: 30 QRS [place]: 30 T Wave [place]: 17 EKG Severity - NORMAL ECG - EKG Impression: SINUS RHYTHM Electronically Signed By: Val Borges 05-Mar-2017 17:10:37
--- NOTE | 2017-03-05 13:54 | CPIP ---
[f rep st] INVASIVE CARDIAC PROCEDURE DATE OF PROCEDURE: 03/05/2017 PROCEDURES PERFORMED: 1. Intravascular ultrasound of the left anterior descending. 2. Percutaneous coronary intervention of the left anterior descending. INDICATION FOR PROCEDURE: The patient is a 56-year-old male who presented with chest discomfort, co nsistent with angina. He has a significant risk profile for CAD. Dr. Raman Dominguez performed a diagn ostic cardiac catheterization. This revealed an angiographically moderate lesion of at least 50%, w hich was somewhat eccentric and located in the midportion of the left anterior descending. Based on the patient's clinical presentation and diagnostic catheterization, I was asked to perform intravas cular ultrasound for more accurate assessment of the significance of the stenosis in question. DETAILS OF PROCEDURE: The patient received intravenous Angiomax. A 6-Italian CLS 3.5 guide catheter was advanced to the left main. A luge guidewire was advanced to the apical portion of the left ant erior descending. An intravascular ultrasound catheter was advanced into the left anterior descendi ng distal to the lesion in question and a pullback examination was performed. Intravascular ultraso und images demonstrated a high-grade area of plaque with a stenosis of 70%. There was no involvemen t of the origin of a principal diagonal branch which arises from the diseased segment of the LAD. T he remainder of left anterior descending demonstrated mild intraluminal plaque. Based on the intrav ascular ultrasound images, the decision was made to perform PCI of the LAD. A 3.0 x 12 mm Emerge ba lloon was advanced into position and a single pre-dilatation inflation was performed. A 3.0 x 16 mm Synergy stent was advanced to the target region and was deployed at high pressure. An intuition gu idewire was advanced into the stented segment and "through stent chcf" into the principal diagonal b ranch. The ostium of the diagonal branch was dilated with a 2.0 x 8 mm Emerge balloon. Final angio grams demonstrated 0% residual stenosis, REINIER-3 flow, and no compromise of the principal diagonal br anch. COMPLICATIONS: None. CONCLUSION: Successful percutaneous intervention of left anterior descending using a single drug-co ated stent. /[id number]/MODL
[2017-03-05] MEDS ORDERED: INSULIN GLARGINE 100 UNITS/ML SYRINGE SC SCH (21:00)
[2017-03-06 05:08] LABS: % IMMATURE GRANULYOCYTES 0.5 % (0.0-1.1); ABSOLUTE IMMATURE GRANULOCYTES 0.04 10^3/uL (0.00-0.10); ADD DIFF? NO; ADD MORPH? NO; ADD SCAN? YES; FRAGMENT RBC FLAG 0 (0-99); HEMATOCRIT 37.8 % (40.0-51.0); HEMOGLOBIN 12.8 g/dL (13.7-17.5); LEFT SHIFT FLG 10 (0-99); LIPEMIA HEMOLYSIS FLAG 90 (0-99); MEAN CELL HEMOGLOBIN 28.8 pg (27.9-34.1); MEAN CELL HEMOGLOBIN CONCENTR. 33.9 g/dL (32.4-36.7); MEAN CELL VOLUME 85.1 fL (81.5-99.8); MEAN PLATELET VOLUME 8.9 fL (8.7-11.7); PLATELET CLUMPS FLAG 0 (0-99); PLATELET COUNT 304 10^3/uL (150-400); RED BLOOD CELL COUNT 4.44 10^6/uL (4.40-6.38); RED CELL DISTRIBUTION WIDTH 12.6 % (11.5-15.2)
[2017-03-06 05:14] LABS: ATYPICAL LYMPHOCYTE FLAG 180 (0-99)
[2017-03-06 05:34] LABS: ALBUMIN 3.4 g/dL (3.5-5.0); ANION GAP 10 mEq/L (8-16); ASPARTATE AMINOTRANSFERASE 14 IU/L (17-59); BILIRUBIN,TOTAL 1.6 mg/dL (0.1-1.4); CALCIUM 9.2 mg/dL (8.5-10.4); CARBON DIOXIDE 23 mEq/l (22-31); CHLORIDE 105 mEq/L (97-110); CREATININE 1.2 mg/dL (0.7-1.3); GLOMERULAR FILTRATION RATE > 60; GLUCOSE 135 mg/dL (70-100); LACTATE DEHYDROGENASE 365 IU/L (313-618); MAGNESIUM 1.4 mg/dL (1.6-2.3); POTASSIUM 4.1 mEq/L (3.5-5.2); SODIUM 138 mEq/L (134-144)
[2017-03-06 06:04] LABS: SCAN NEGATIVE
[2017-03-06] MEDS ORDERED: MAGNESIUM SULF 2 GM/WATER 50 ML IV ONE (07:57)
[2017-03-06] MEDS: ASPIRIN EC 325 MG TAB PO SCH (08:24)
[2017-03-06] MEDS ORDERED: NON-FORMULARY NEW DRUG (Vitamin B Complex [Super B-50 Complex] 1 EACH) PO SCH (09:00)
[2017-03-06] MEDS ORDERED: PANTOPRAZOLE SODIUM 40 MG TAB PO SCH (09:00)
[2017-03-06] MEDS ORDERED: ATORVASTATIN CALCIUM 20 MG TAB PO SCH (09:00)
[2017-03-06] MEDS ORDERED: PRASUGREL HCL 10 MG TAB PO SCH (09:00)
[2017-03-06] MEDS ORDERED: ASPIRIN 81 MG CHEWABLE TAB PO SCH (09:00)
[2017-03-06] MEDS ORDERED: OMEGA-3 FATTY ACIDS 1,000 MG CAP PO SCH (09:00)
[2017-03-06] MEDS ORDERED: ASCORBIC ACID 500 MG TAB PO SCH (09:00)
[2017-03-06] MEDS ORDERED: Herbals/Supplements -Info Only PO SCH (09:00)
[2017-03-06] MEDS ORDERED: MAGNESIUM OXIDE 400 MG TAB PO SCH (09:00)
[2017-03-06] MEDS ORDERED: CHOLECALCIFEROL VIT D3 2,000 UNITS TAB/CAP PO SCH (09:00)
[2017-03-06] MEDS ORDERED: NON-FORMULARY NEW DRUG (Esomeprazole Mag Trihydrate [Nexium] 40 MG) PO SCH (09:00)
--- NOTE | 2017-03-06 09:35 | CPEKG ---
Heart Rate: 96 RR Interval: 625 P-R Interval: 164 QRSD Interval: 74 QT Interval: 348 QTC Interval: 440 P [place]: 41 QRS [place]: 47 T Wave [place]: 7 EKG Severity - NORMAL ECG - EKG Impression: SINUS RHYTHM Electronically Signed By: Val Borges 06-Mar-2017 17:00:37
[2017-03-06] MEDS ORDERED: SODIUM BICARBONATE 150 MEQ in D5W 1,000 ML IV SCH (12:30)
--- NOTE | 2017-03-06 14:09 | PDCARPN ---
Cardiology Progress Note Chief Complaint: No complaints voiced today with respect to cardiovascular issues. There continues to be a mild degree of left upper arm/shoulder pains Assessment/Plan: Assessment: Patient is a 56 y/o male with history of poorly controlled DM (with lower extremity neuropathy noted) and recent diagnosis of renal cell carcinoma, who presented to [facility] with complaints of chest tightness and left arm discomfort. Given the patient aforementioned history, we opted to pursue invasive cardiovascular testing (angiography) over non invasive stress testing. Angiogram yesterday with critical mid LAD lesion noted. Dr. Mariano Emmanuel performed PCI to this lesion and the patient recovered overnight on the PCU. Today, the patient has noted resolution of the previously appreciated chest tightness, but continues to have some degree of left shoulder and arm pains. No events overnight. Questions about limitations (short and long) were addressed with patient and partner today. Plan: (1) Would maintain therapy on ASA for life with this new diagnosis (2) Effient was started post PCI, and should be continued for a minimum of one year (3) Aggressive DM control is needed to drive A1C below 6% (4) Would arrange for cardiac rehab (as allowable given the patient's work schedule) (5) Consider dietary consultation for assessment of current diet with respect to CAD and DM diagnoses (6) Statins should continue for history of HLP, and maintain annual assessment of cholesterol and LFTs (7) Outpatient follow up with cardiology in one week is recommended Subjective: No cardiovascular complaints Reviewed/Discussed With: family, hospitalist, multidisciplinary team Objective: Vital Signs (8 Hrs) Temp Pulse Resp BP Pulse Ox 03/06/17 12:00 36.7 C 77 20 144/89 H 95 03/06/17 07:22 36.5 C 78 18 122/86 H 92 Intake/Output (24 Hrs) 03/05/17 03/06/17 03/07/17 05:59 05:59 05:59 Intake Total 900 2990 Output Total 3375 1050 Balance 900 -385 -1050 Intake: Oral (ml) 0 740 IV Intake (ml) 500 IV Infused (ml) 900 1750 Ns 1,000 ml @ 100 mls/hr 1150 IV CONT WILLIAN Rx#: [id number] Ns 1,000 ml @ 150 mls/hr 900 600 IV CONT WILLIAN Rx#: [id number] Output: Urine (ml) 3375 1050 Urinal 3375 1050 Other: Weight 92.9 kg Number of Voids Toilet 2 Urinal 1 2 Number of Stools Urinal 1 Result Diagrams: 03/06/17 04:16 03/06/17 04:16 Cardiac Labs: Cardiac Lab Results (72 Hrs) 03/05/17 03:50 Troponin I < 0.012 Telemetry: normal sinus rhythm - Physical Exam Constitutional: WDWN, healthy appearing, no apparent distress Eyes: PERRL, EOMI Ears, Nose, Mouth, Throat: moist mucous membranes Cardiovascular: regular rate and rhythm, no murmurs, no rubs, no gallops Peripheral Pulses: 2+: femoral (R), femoral (L), dorsalis-pedis (R), dorsalis- pedis (L) Respiratory: clear to auscultate bilat, no crackles, no wheezes Gastrointestinal: normoactive bowel sounds Skin: no rashes, no edema Musculoskeletal: no muscular tenderness Neurologic: AAOx3, CN II-XII grossly intact Psychiatric: cooperative, interactive, following commands ICD10 Worksheet Patient Problems: Problems Problem Status Onset Chest pain Acute C. difficile diarrhea Acute 07/24/16 Right renal mass Acute
[2017-03-06] MEDS ORDERED: IOPAMIDOL (ISOVUE-300) 100 ML BTL ONE (14:20)
--- NOTE | 2017-03-06 16:04 | PDDCSUM ---
Discharge Summary Discharge Summary: Dates of service 03/04-03/06/17 Discharge dx: # ACS # CAD # poorly controlled DM2 # RCC # joseph consultations: cardiology Procedures performed: coronary angiography, PCI to LAD, abd CT Hospital course by problem: # ACS/unstable angina: patient presenting with c/o chest and left arm pain without troponin elevation or ischemic changes on ecg. given multiple risk factors as well as joseph/ckd decision was made to proceed straight to cath--found to have LAD lesion s/p stent as next # CAD: stent placed to LAD, sxs improved other then left arm pain which has been persistent. Continue med mgmt with asa, statin, effient x 1 year. consideration for BB to be made on f/u with cardiology # poorly controlled DM: most recent A1c > 9. Patient with low morning glucoses but apparent post prandial spikes. Discussed possibility of starting meal time insulin, but he is resistant to this idea. He is amenable to establishing care with endocrinology, and given name for f/u. # RCC: was due for staging f/u abd CT which was performed in house to be certain there was no contribution of disease progression contributing to his presentation. No e/o metastatic disease on abd ct. # left arm pain: chest pain resolved but arm pain persisted after cath. Concern that it was unrelated to heart disease and in particular that could be sign of bony metastasis. No mets noted or other abnormalities on arm film. ? if residual from ACS versus MSK issue. Plan to f/u with pcp # joseph: improved post admission, likely pre renal Dc home F/u with PCP José Paz and referral made to Dr. Knowles of endocrinology > 35 minutes spent in dc of patient, more than half in face to face counseling of patient and his friend present at bedside regarding importance of DM mgmt and strategies for improved glucose mgmt.
[2017-03-06 16:31] VITALS: BP 133/79; PULSE 69; RESP 18; TEMP 97.9; O2SAT 93
[2017-03-08 14:12] LABS: 2C19S INTERPRETATION See Comments
[2017-03-10] MEDS ORDERED: NON-FORMULARY NEW DRUG (Exenatide Microspheres [Bydureon Pen] 2 MG) SQ SCH (10:23)
== END 2017-03-06 17:45 | disposition home or self-care (01) ==
LOC: F2W 23:49
PROVIDERS: ADMIT Internal Medicine; ATTEND Internal Medicine
PROC: B2111ZZ Fluoroscopy of Multiple Coronary Arteries using Low Osmolar Contrast (ICD-10-PCS; principal; 2017-03-04)
PROC: 4A023N7 Measurement of Cardiac Sampling and Pressure, Left Heart, Percutaneous Approach (ICD-10-PCS; principal; 2017-03-04)
PROC: B2151ZZ Fluoroscopy of Left Heart using Low Osmolar Contrast (ICD-10-PCS; principal; 2017-03-04)
PROC: 02713ZZ Dilation of Coronary Artery, Two Arteries, Percutaneous Approach (ICD-10-PCS; 2017-03-04)
DX: I77.1 Stricture of artery (principal); M79.622 Pain in left upper arm; N18.3 Chronic kidney disease, stage 3 (moderate); E11.65 Type 2 diabetes mellitus with hyperglycemia; E11.29 Type 2 diabetes mellitus with other diabetic kidney complication; Z85.520 Personal history of malignant carcinoid tumor of kidney
CPT/HCPCS: 71020; 73060; 74160; 92921; 92928; 92978; 93005; 93458; 97165; C1725; C1753; C1769; C1887; G0378; 81225-90; C1760; C1874; C9600; J0583; J1644; J1815; J2250; J3010; Q9967

== ENCOUNTER 2017-05-13 16:26 | Observation (INO) | payer OTHER ==
--- NOTE | 2017-05-13 16:42 | CPEKG ---
Heart Rate: 84 RR Interval: 714 P-R Interval: 160 QRSD Interval: 76 QT Interval: 360 QTC Interval: 426 P [place]: 41 QRS [place]: 40 T Wave [place]: 31 EKG Severity - NORMAL ECG - EKG Impression: SINUS RHYTHM Electronically Signed By: Luzmaria Ellington 13-May-2017 21:05:40
--- NOTE | 2017-05-13 16:45 | EDPHY ---
H & P Time Seen by Provider: 05/13/17 16:39 HPI/ROS: CHIEF COMPLAINT: Chest pain. HISTORY OF PRESENT ILLNESS: The patient is a 56-year-old male with CAD, diabetes , and renal cell carcinoma, who presents with sudden onset of left sided chest pain at 4pm. The patient reports feeling some indigestion since this morning. After lunch he felt lightheaded. Just prior to arrival, he developed sharp, left sided chest pain that lasted for a second. This pain radiated into his jaw and left arm. His chest pain has resolved; however he continues to have jaw pain and left arm numbness. His chest pain prior to stent placement felt like he had an elephant on his chest. The patient saw his physician general practice, Dr. Thompson last week for a routine check up. Of note, the patient travelled from [facility] two weeks ago. He denies lower extremity pain or swelling. No recent development of shortness of breath. The patient is on anticoagulants. REVIEW OF SYSTEMS: A comprehensive 10 point review of systems is otherwise negative aside from elements mentioned in the history of present illness. Past Medical/Surgical History: Kidney cancer, Nephrectomy in June, DM, CAD, stents x2 Family History: Father with MO age 45. Social History: Lives in [place] with his partner. Smoking Status: Never smoked Physical Exam: General Appearance: Alert, pleasant Eyes: Pupils equal and round, no conjunctival pallor or injection ENT, Mouth: Mucous membranes moist Neck: Normal inspection, NT, ROM without pain Respiratory: no chest wall tenderness, Lungs are clear to auscultation Cardiovascular: Regular rate and rhythm Gastrointestinal: Abdomen is soft and non-tender Neurological: A&O, nonfocal, normal gait Skin: Warm and dry, no rash Vascular: 2+ radial pulses Extremities: Nontender, no pedal edema Psychiatric: Mood and affect normal Constitutional: Initial Vital Signs Temperature (C) 36.8 C 05/13/17 16:28 Heart Rate 96 05/13/17 16:28 Respiratory Rate 16 05/13/17 16:28 Blood Pressure 144/86 H 05/13/17 16:28 O2 Sat (%) 96 05/13/17 16:28 O2 Delivery Mode Room Air Allergies/Adverse Reactions: Penicillins Allergy (Severe, Verified 03/04/17 21:11) STOPPED BREATHING erythromycin base [Erythromycin Base] Allergy (Intermediate, Verified 03/04/17 21:11) Rash hydromorphone HCl [From Dilaudid] Allergy (Intermediate, Verified 03/04/17 21:11 ) Itching Sulfa (Sulfonamide Antibiotics) Allergy (Intermediate, Verified 03/04/17 21:11) Rash Home Medications: Medication Instructions Recorded Ascorbic Acid [Vitamin C 500 mg 1,000 mg PO DAILY 06/16/16 (*)] Atorvastatin Calcium [Lipitor 20 20 mg PO DAILY 06/16/16 mg (*)] Cholecalciferol Vit D3 [Vitamin D3 4,000 units PO DAILY 06/16/16 2000 units tab (OTC)] Esomeprazole Mag Trihydrate 40 mg PO DAILY 06/16/16 [Nexium] Glucosamine/Chondroitin 1 each PO DAILY 06/16/16 [Glucosamine/Chondroitin (*)] Herbals/Supplements -Info Only 1 ea PO DAILY 06/16/16 Magnesium Oxide [Magnesium Oxide 400 mg PO DAILY 06/16/16 400 mg (*)] [place]-3 Fatty Acids [Fish Oil 1000 1,000 mg PO DAILY 06/16/16 mg (*)] Vitamin B Complex [Super B-50 1 each PO DAILY 06/16/16 Complex] Insulin Glargine [Lantus 100 44 units SC HS 06/22/16 UNITS/ML (*)] Exenatide Microspheres [Bydureon 2 mg SQ SA 03/04/17 Pen] Prasugrel HCl [Effient 10mg (*)] 10 mg PO DAILY #30 tab 03/06/17 Lisinopril [Zestril 10 mg (*)] 10 mg PO DAILY 05/13/17 Metformin HCl [Metformin 1000 mg] 1,000 mg PO BIDMEAL 05/13/17 Methocarbamol [Robaxin 750 mg (*)] 750 mg PO TID #30 tab 05/14/17 Medical Decision Making - Diagnostics EKG Interpretation: EKG interpreted by me reveals normal sinus rhythm, normal axis, normal intervals , ST and T segments normal. Interpretation: normal EKG Imaging Results: CXR: NAD Imaging: I viewed and interpreted images myself ED Course/Re-evaluation: This patient with known CAD presents with acute chest pain. His pain today is slightly different chest pain than prior to stent placement. However, he has prolonged aching in his jaw and left arm, which is concerning given his cardiac hx. stat EKG without ischemic changes. Plan for cardiac workup including EKG, chest x-ray, lab work, and troponin. Patient has a negative chest x-ray. Troponin is normal. Lab work is unremarkable. EKG is normal. Given high risk of ACS, will admit for further eval of cardiac etiology of sx. 5:55 p.m.: I consulted the hospitalist, Dr. Trejo, who accepts patient for admission. Differential Diagnosis: includes though not limited to ACS, PE, pulm edema, pneumonia, dissection - Data Points Laboratory Results: Laboratory Results 05/13/17 16:50 05/13/17 16:50 Medications Given: Discontinued Medications Acetaminophen (Tylenol) 650 mg PO Q4HRS PRN PRN Reason: Pain, Mild/Fever, Can Take PO Stop: 11/09/17 19:38 Last Admin: 05/14/17 04:21 Dose: 650 mg Al Hydroxide/Mg Hydroxide (Maalox Susp) 30 ml PO ONCE ONE Stop: 05/13/17 17:58 Last Admin: 05/13/17 18:25 Dose: 30 ml Ascorbic Acid (Vitamin C) 1,000 mg PO DAILY WILLIAN Stop: 11/10/17 08:59 Last Admin: 05/14/17 07:57 Dose: 1,000 mg Atorvastatin Calcium (Lipitor) 20 mg PO DAILY WILLIAN Stop: 11/10/17 08:59 Last Admin: 05/14/17 16:19 Dose: Not Given Cholecalciferol (Vitamin D) 4,000 units PO DAILY WILLIAN Stop: 11/10/17 08:59 Last Admin: 05/14/17 07:56 Dose: 4,000 units Glucosamine/Chondroitin (Glucosamine/Chondroitin) 1 each PO DAILY WILLIAN Stop: 11/10/17 08:59 Last Admin: 05/14/17 07:57 Dose: 1 each Heparin Sodium (Porcine) (Heparin Sc Injection) 5,000 unit SC Q8HRS WILLIAN Stop: 11/09/17 21:59 Last Admin: 05/14/17 16:19 Dose: Not Given Hyoscyamine Sulfate (Levsin, Hyomax-Sl) 0.25 mg PO ONCE ONE Stop: 05/13/17 17:58 Last Admin: 05/13/17 18:25 Dose: 0.25 mg Sodium Chloride (Ns) 500 mls @ 1,500 mls/hr IV ONCE ONE Stop: 05/13/17 19:58 Last Admin: 05/13/17 22:20 Dose: 500 mls Insulin Glargine (Lantus Syringe) 44 units SC HS [facility] Stop: 11/09/17 20:59 Last Admin: 05/13/17 23:48 Dose: Not Given Insulin Glargine (Lantus Syringe) 22 units SC HS [facility] Stop: 11/09/17 21:59 Last Admin: 05/13/17 22:20 Dose: 22 units Insulin Human Lispro (Humalog Lispro) 0 unit SC TIDMEAL WILLIAN PRN Reason: Protocol Stop: 11/10/17 07:59 Last Admin: 05/14/17 12:06 Dose: Not Given Lidocaine (Lidocaine 2% Viscous) 15 ml PO ONCE ONE Stop: 05/13/17 17:58 Last Admin: 05/13/17 18:25 Dose: 15 ml Lisinopril (Zestril) 10 mg PO DAILY [facility] Stop: 11/10/17 08:59 Last Admin: 05/14/17 07:54 Dose: 10 mg Magnesium Oxide (Magnesium Oxide) 400 mg PO DAILY WILLIAN Stop: 11/10/17 08:59 Last Admin: 05/14/17 07:57 Dose: 400 mg Methocarbamol (Robaxin) 750 mg PO TID PRN PRN Reason: pain Stop: 11/10/17 15:59 Last Admin: 05/14/17 12:06 Dose: 750 mg [id number] Ethyl Esters (Fish Oil) 1,000 mg PO DAILY [facility] Stop: 11/10/17 08:59 Last Admin: 05/14/17 16:19 Dose: Not Given Pantoprazole Sodium (Protonix) 40 mg PO DAILY WLILIAN Stop: 11/10/17 08:59 Last Admin: 05/14/17 07:54 Dose: 40 mg Prasugrel (Effient) 10 mg PO DAILY WILLIAN Stop: 11/10/17 08:59 Last Admin: 05/14/17 07:55 Dose: 10 mg Vitamin B Complex (Vitamin B Complex) 1 ea PO DAILY [facility] Stop: 11/10/17 08:59 Last Admin: 05/14/17 07:56 Dose: 1 ea Departure - Departure Disposition: [facility] Acute Clinical Impression: Chest pain Qualifiers: Chest pain type: unspecified Qualified Code(s): R07.9 - Chest pain, unspecified Condition: Fair Report Scribed for: Luzmaria Ellington Report Scribed by: Lorie Blakely Date of Report: 05/13/17 Time of Report: 16:54 Physician Review and Approval Statement: 05/13/17 16:54 Portions of this note were transcribed by a medical equipment repair technician. I personally performed the history, physical exam, and medical decision-making; and confirmed the accuracy of the information in the transcribed note.
[2017-05-13 17:10] LABS: % IMMATURE GRANULYOCYTES 0.2 % (0.0-1.1); ABSOLUTE IMMATURE GRANULOCYTES 0.02 10^3/uL (0.00-0.10); ADD DIFF? NO; ADD MORPH? NO; ADD SCAN? NO; ATYPICAL LYMPHOCYTE FLAG 10 (0-99); FRAGMENT RBC FLAG 0 (0-99); HEMOGLOBIN 12.3 g/dL (13.7-17.5); LEFT SHIFT FLG 0 (0-99); LIPEMIA HEMOLYSIS FLAG 80 (0-99); MEAN CELL HEMOGLOBIN 29.2 pg (27.9-34.1); MEAN CELL HEMOGLOBIN CONCENTR. 33.2 g/dL (32.4-36.7); MEAN CELL VOLUME 87.9 fL (81.5-99.8); MEAN PLATELET VOLUME 8.9 fL (8.7-11.7); PLATELET CLUMPS FLAG 0 (0-99); PLATELET COUNT 340 10^3/uL (150-400); RED BLOOD CELL COUNT 4.21 10^6/uL (4.40-6.38)
[2017-05-13 17:22] LABS: ANION GAP 14 mEq/L (8-16); CALCIUM 9.9 mg/dL (8.5-10.4); CARBON DIOXIDE 18 mEq/l (22-31); CHLORIDE 108 mEq/L (97-110); CREATININE 1.3 mg/dL (0.7-1.3); GLOMERULAR FILTRATION RATE 57; GLUCOSE 147 mg/dL (70-100); POTASSIUM 4.2 mEq/L (3.5-5.2); SODIUM 140 mEq/L (134-144)
[2017-05-13 17:34] LABS: TROPONIN I < 0.012 ng/mL (0-0.034)
[2017-05-13] MEDS ORDERED: MAG HYDROX/AL HYDROX/SIMETH 30 ML UDCUP PO ONE (17:57)
[2017-05-13] MEDS ORDERED: HYOSCYAMINE SULFATE 0.125 MG TAB PO ONE (17:57)
[2017-05-13] MEDS ORDERED: LIDOCAINE 2% VISCOUS 15 ML UDCUP PO ONE (17:57)
[2017-05-13] MEDS ORDERED: ONDANSETRON DISINTEGRATING 4 MG TAB PO PRN (19:39)
[2017-05-13] MEDS ORDERED: NS 500 ML IV ONE (19:39)
[2017-05-13] MEDS ORDERED: ACETAMINOPHEN 325 MG TAB PO PRN (19:39)
[2017-05-13] MEDS ORDERED: ONDANSETRON 4 MG/2 ML VIAL IVP PRN (19:39)
[2017-05-13] MEDS ORDERED: D50W 25 GM/50 ML SYR IVP PRN (19:47)
--- NOTE | 2017-05-13 20:17 | GHP ---
[f rep st] HISTORY AND PHYSICAL DATE OF ADMISSION: 05/13/2017 CHIEF COMPLAINT: Chest pain. HISTORY OF PRESENT ILLNESS: 56-year-old male who is presenting with sudden onset of indigestion and reflux at approximately 10 o'clock the morning of presentation, that persisted until he developed a very sharp, strong pain on the left side of his chest which radiated into his arm, giving him a very heavy , uncomfortable discomfort in his arm as well as in his jaw. The patient reports some shortness of breath with this. No noted diaphoresis, nausea, or vomiting. The patient does note that he has been doing a lot of unusual activity as they have been remodeling a property in [place]. He has been painting and doing a lot of tasks around that remodel. He does additionally notes some low back pain which is intermittently chronic, as well as some left elbow pain which is intermittently chronic, as well as left knee pain. The patient denies any diarrhea, dysuria. Has been relatively compliant with his diabetic diet, as well as completely compliant with his cardiac medications. Denies any subjective fevers or chills. PAST MEDICAL HISTORY: 1. Coronary artery disease status post LAD stenting in February of 2017. 2. Diabetes mellitus. 3. History of renal cell carcinoma, status post partial resection of his right kidney. 4. History of diverticulitis. 5. History of C difficile colitis. 6. Chronic kidney disease. SOCIAL HISTORY: Negative for tobacco. Occasional alcohol. No illicit drugs or marijuana. 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 FAMILY HISTORY: Positive for father who of an MS in his early 60s. ADVANCE DIRECTIVES: Patient is full cor, full tube. REVIEW OF SYSTEMS: A 10-point review of systems is negative with the exception of that reported in the HPI. PHYSICAL EXAMINATION: VITAL SIGNS: Blood pressure 135/78, heart rate 81, respiratory rate 16, 94% on room air, 36.6. GENERAL: This is a healthy- appearing, middle-aged male in no acute distress. HEENT: Notable for moist mucous membranes. Eye exam is negative for any icterus. CARDIAC: Patient is regular rate and rhythm. PULMONARY: Clear to auscultation bilaterally. GASTROINTESTINAL: Positive bowel sounds. Abdomen is soft and nontender in all 4 quadrants. MUSCULOSKELETAL: Negative for any lower extremity edema. SKIN: Negative for any rashes. NEUROLOGIC: He is alert and oriented x3. PSYCHIATRIC : He is pleasant and cooperative on interview and examination. LABORATORY DATA: White count 8.6, hematocrit 37.0, platelets 340. Sodium of 140, creatinine 1.3 (which is baseline). Troponin less than 0.012. EKG, which I personally reviewed and interpreted, shows sinus rhythm, normal axis, normal intervals, with no acute ST-T changes. Chest x-ray, which I personally reviewed and interpreted, shows no acute infiltrates or edema. ASSESSMENT AND PLAN: This is a 56-year-old male with known coronary artery disease, recent stenting of his left anterior descending, presenting with chest pain. 1. Acute chest pain. The patient certainly is high risk with known coronary disease and recent stenting. Initial troponin and EKG are negative. Will admit the patient for serial troponins and EKGs. If he rules out overnight, can discuss with Cardiology their preference, either nuclear imaging or more invasive cardiac catheterization. Suspect nuclear imaging would be appropriate if the patient rules out and remains stable on telemetry. 2. Diabetes mellitus. Will reduce patient's home dosing of Lantus to half dose 22 units (as NPO after MN) , hold his metformin, and additionally cover with lispro sliding scale insulin. 3. Chronic kidney disease. Patient is status post partial nephrectomy. Creatinine is 1.3, BUN is mildly elevated. Will give a small fluid bolus and follow on his home medications. 4. Prophylaxis with heparin subcu. 5. Diet: Cardiac. DISPOSITION: Expect less than 2 midnights if the patient rules out overnight and has benign cardiac stress testing. I discussed the case with the emergency room physician. Patient will be triaged to the PCU for monitoring and care. /[id number]/MODL MTDD
[2017-05-13] MEDS ORDERED: INSULIN GLARGINE 100 UNITS/ML SYRINGE SC SCH ×3 (21:00→22:00)
[2017-05-13] MEDS ORDERED: NITROGLYCERIN 0.4 MG BTL SL PRN (21:30)
[2017-05-13] MEDS: HEPARIN 5,000 UNIT/0.5 ML SYR SC SCH (22:19)
[2017-05-14 05:05] LABS: ANION GAP 10 mEq/L (8-16); CALCIUM 9.4 mg/dL (8.5-10.4); CARBON DIOXIDE 21 mEq/l (22-31); CHLORIDE 110 mEq/L (97-110); CREATININE 1.3 mg/dL (0.7-1.3); GLOMERULAR FILTRATION RATE 57; GLUCOSE 115 mg/dL (70-100); POTASSIUM 4.1 mEq/L (3.5-5.2); SODIUM 141 mEq/L (134-144)
[2017-05-14 07:13] VITALS: TEMP 97.8
[2017-05-14] MEDS: INSULIN LISPRO 100 UNIT/ML SC SCH ×2 (07:44→12:06)
[2017-05-14] MEDS: HEPARIN 5,000 UNIT/0.5 ML SYR SC SCH ×2 (07:53→16:19)
[2017-05-14] MEDS ORDERED: LISINOPRIL 10 MG TAB PO SCH (09:00)
[2017-05-14] MEDS ORDERED: CHOLECALCIFEROL VIT D3 2,000 UNITS TAB/CAP PO SCH (09:00)
[2017-05-14] MEDS ORDERED: OMEGA-3 FATTY ACIDS 1,000 MG CAP PO SCH (09:00)
[2017-05-14] MEDS ORDERED: PANTOPRAZOLE SODIUM 40 MG TAB PO SCH (09:00)
[2017-05-14] MEDS ORDERED: ATORVASTATIN CALCIUM 20 MG TAB PO SCH (09:00)
[2017-05-14] MEDS ORDERED: MAGNESIUM OXIDE 400 MG TAB PO SCH (09:00)
[2017-05-14] MEDS ORDERED: PRASUGREL HCL 10 MG TAB PO SCH (09:00)
[2017-05-14] MEDS ORDERED: Herbals/Supplements -Info Only PO SCH (09:00)
[2017-05-14] MEDS ORDERED: GLUCOSAMINE/CHONDROITIN CAP PO SCH (09:00)
[2017-05-14] MEDS ORDERED: VITAMIN B COMPLEX 1 EA CAP/TAB PO SCH (09:00)
[2017-05-14] MEDS ORDERED: ASCORBIC ACID 500 MG TAB PO SCH (09:00)
[2017-05-14] MEDS ORDERED: METHOCARBAMOL 750 MG TAB PO PRN (10:57)
[2017-05-14 11:18] LABS: HEMATOCRIT 35.5 % (40.0-51.0)
[2017-05-14 11:21] LABS: AMYLASE 40 IU/L (30-110)
--- NOTE | 2017-05-14 12:36 | ECHO ---
[id number] + + [id number] : : [place] [address] : : [phone] + + Adult Echocardiographic Report + ---------+ :Name: BECCA SALAZAR WStudy Date: 05/14/2017 11:16 AM BP: 116/73 m mHg : : Hospital Admission Number: [id number] Kina garcia: 205: :: 1960 Gender: Male Height: 71 i n : :Age: 56 yrs Race: WH Weight: 197 lb : :Reason For Study: copd/sob/cp : : BSA: 2.1 met ers2 : :History: s/p stent February 2017 : + ---------+ MMode/2D Measurements \T\ Calculations IVSd: 1.1 cm RVDd: 3.4 cm FS: 45.5 % Ao root diam: LVPWd: 0.84 cm LVIDd: 3.9 cm EDV(Teich): 3.4 cm LVIDs: 2.1 cm 64.4 ml ESV(Teich): 14.5 ml EF(Teich): 77.5 % LVLd ap4: 9.6 cm SV(MOD-sp4): EDV(MOD-sp4): 101.0 ml 145.0 ml LVLs ap4: 7.8 cm ESV(MOD-sp4): 44.0 ml EF(MOD-sp4): 69.7 % Normal Measurement Values: + + :LVIDd (3.5-5.7cm) IVSd (0.6-1.1cm) LVPWd (0.6-1.1cm) Aortic Root (2.0-3.7cm)Left Atrium (1.5-4.0cm): :LV Vol(d) (76-115ml) LV Vol(s) (29-48ml) Ejec Fraction (50-65%)PV Roshan (0.6- 1.2m/s) TV Roshan (0.4-1.0m/s) : :MV E Roshan (0.8-1.0m/s)MV A Roshan (0.3-1.0m/s)LVOT Roshan (0.7-1.2m/s) Asc Ao Roshan ( 0.9-1.8m/s) : + + Doppler Measurements \T\ Calculations MV E max roshan: Ao V2 max: LV V1 max: PA V2 max: 67.6 cm/sec 110.9 cm/sec 68.6 cm/sec 67.5 cm/sec MV A max roshan: Ao max P.9 mmHg LV V1 max PG: PA max P.1 cm/sec 1.9 mmHg 1.8 mmHg MV E/A: 0.98 MV dec time: 0.22 sec Left Ventricle The left ventricle is normal in size and function. There is normal left ventricular wall thickness. Ejection Fraction = 65-70%. No regional wall motion abnormalities noted. Right Ventricle The right ventricle is normal in size and function. Atria The left atrial size is normal. Right atrial size is normal. Mitral Valve The mitral valve is normal in structure and function. There is no mitral valve stenosis. There is trace mitral regurgitation. Tricuspid Valve The tricuspid valve is normal in structure and function. There is no tricuspid stenosis. There is trace tricuspid regurgitation. Aortic Valve The aortic valve is trileaflet. There is no aortic stenosis. There is no aortic insufficiency. Pulmonic Valve The pulmonic valve is not well visualized. Great Vessels The aortic root is normal size. Pericardium/Pleural There is no pericardial effusion. Conclusion A two-dimensional transthoracic echocardiogram with M-mode and Doppler was performed. The left ventricle is normal in size and function. Ejection Fraction = 65-70%. There is trace mitral regurgitation. There is trace tricuspid regurgitation. Final Reading Physician: Renee Zuleta signed on 05/14/2017 12:35 PM Ordering Physician: Minh Yates Performed By: Jo Ann Mcgregor
--- NOTE | 2017-05-14 14:34 | GCON ---
[f rep st] CONSULTATION CHIEF COMPLAINT: Chest pain. HISTORY OF PRESENT ILLNESS: He has been quite well. He recently flew in from [facility]. He travels a ll the time, but that was 2 weeks ago. He has had no swelling of his lower extremities. No hot, sw ollen joints. He has been suffering with pain in the tendon underneath his left thigh today, as wel l as some bothersome discomfort in his right wrist. He had coronary artery stenting in February at which time, he presented with an elephant on his chest and a left arm that was numb. He since that time, had been walking 3 miles a day and has no complaints whatsoever. He has a remot e history of esophageal dilatation 10 years ago. What happened to him was on Sunday, he had his usu al breakfast, then at 10 o'clock, he developed heartburn below the sternum. It was in the center of the chest and it was a burning sensation. He has not had this heartburn before. He then went off the lunch, ate his lunch, it did not change the heartburn much, but at 3:30 in the afternoon, he dev eloped a very extreme sharp, brief chest discomfort that lasted for seconds only, but it was very se diana and he felt dizzy for a while after that. This was right in the center of his chest. He had heartburn throughout the day from 10 in the morning until 4 o'clock in the afternoon when he came to the emergency room, and the GI cocktail made the heart pain go away immediately. Last evening, he had 40 minutes of 2/10 chest tightness that was not associated with shortness of br eath. He has not had cough, shortness of breath, sputum production, hemoptysis. No rigors. No fev ers, chills. No GI complaints of nausea, vomiting, diarrhea, constipation, early satiety, weight loss. He is a very active gentleman and has been in good health. He has no palpitations, lightheadedness, syncope, near syncope. He has had diabetes for 23 years, hypertension, hyperlipidemia, and known coronary disease. He also has a family history of myocardial infarctions at a premature age. CARDIAC RISK FACTORS: Negative for gout and smoking and obesity. PAST MEDICAL HISTORY: SOCIAL HISTORY: He was born in [place], [place]. He grew up there and stayed there until he was 34 years old. 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 He lives with his partner who is healthy. He has no children. Do es not smoke, does not drink significant amounts of alcohol, and he exercises regularly. He is a very active gentleman. REVIEW OF SYSTEMS: 12-point review of systems negative except as noted. He has history of renal ce ll carcinoma with a partial resection of his right kidney. He has diverticular disease. He has had C difficile colitis. He also has had chronic kidney disease. ALLERGIES: Penicillin, erythromycin, Dilaudid, and sulfa. MEDICATIONS: At home include Effient, Glucophage, Zestril, Lantus insulin, multiple vitamins, and o [id number]-mph-tpsuhxn medications. FAMILY HISTORY: His father had a myocardial infarction at age 45. PHYSICAL EXAMINATION: VITAL SIGNS: Blood pressure is 137/75, respiratory rate is 12, heart rate 65 , he is afebrile, sitting comfortably in a hospital bed. GENERAL: He is very cooperative. He is a lert and awake. HEENT: Pupils equal and reactive. Mucous membranes and mouth moist. NECK: Suppl e. CARDIOVASCULAR: S1, S2. Soft systolic murmur, left sternal border. No diastolic murmur. No S 3, S4. No rubs. PULMONARY: Rhonchi bilaterally. No rales, wheezing, or dullness. CVA, no tender ness. ABDOMEN: Soft, nontender without masses. EXTREMITIES: No edema, inflammation, or ulceratio n. NEUROLOGIC: Cranial nerves 2 through 12 normal. Motor and sensory intact. PSYCH: No obvious anxiety or depression. SKIN: Age-related changes. LABORATORY DATA: White count 8.6, hematocrit 37, platelets 374. Creatinine 1.3. Troponin is negat onofre. DATA REVIEWED: EKG shows no acute changes. Chest x-ray is negative. ASSESSMENT: 1. Coronary artery disease. 2. Dyslipidemia. 3. Diabetes mellitus. 4. Hypertension. 5. Family history of premature coronary disease. PLAN: This gentleman is a set up for coronary disease, is going to keep coming back. He is doing a great job of watching his diet, taking care of herself, and exercising. He has been a diabetic for over 23 years. His family history is very significant for early coronary disease. Currently, his troponins and EKGs are unremarkable, and his pain is not at all like his pain was whe n he got his stent in, in February. This current pain could easily be coronary pain or it could be somet ubaldo else. We will do a barium swallow, upper GI, and we will do a nuclear stress test. I have off ered him coronary angiography to definitively rule out an acute coronary syndrome. He would like to go with a noninvasive test first. He understands the risks and the benefits. He understands the o ptions and would like to take this approach. He is doing a terrific job with prevention. We have reviewed all the things he can do to make thing s better, and he is doing a great job with that. His chest discomfort could be due to esophageal disease and therefore, he will have the barium swall ow, upper GI. His pulses are full and equal. There is nothing to suggest disease of the great vessels. We will l ook for pericardial or valvular disease with an echocardiographic study, but I do not suspect that r ight now. He does not have symptoms of an early acute abdomen or GI bleed at this point. We will check his am ylase and lipase. We will follow him very closely. I have discussed his case with his nurse and with the hospitalist. All questions have been answered. /[id number]/MODL
--- NOTE | 2017-05-14 14:59 | CPIP ---
[f rep st] INVASIVE CARDIAC PROCEDURE PROCEDURE: Nuclear stress test. INDICATION: Chest discomfort. He has known coronary disease with stenting in his LAD in February 2017. He has had atypical pain now that was different than the pain he had prior to his nuclear test. He gave informed consent and we proceeded with the usual James protocol stress test. FINDINGS: The patient exercised on a James protocol for 7 minutes and 42 seconds with no chest disc omfort. He reached maximum predicted heart rate and had some shortness of breath at peak exercise. His EKG was normal at baseline and there were no diagnostic EKG changes with exercise. He had no chest pain, jaw pain, or arm pain. No lightheadedness or dizziness. He had no PVCs, no other arrhythmias during the procedure or in recovery. He received nuclear isotope 1 minute prior to peak exercise, and nuclear images are pending. CONCLUSION: 1. This is a negative James protocol stress test for EKG or clinical evidence of ischemia at a good workload. 2. The Gil Treadmill Score would be 7, indicating a low probability of cardiovascular event over t he next 3 years. 3. Nuclear images pending. /[id number]/MODL
[2017-05-14 15:11] VITALS: BP 135/90; PULSE 77; RESP 18; O2SAT 92
--- NOTE | 2017-05-14 17:44 | GDS ---
[f rep st] DISCHARGE SUMMARY ALL DIAGNOSES: 1. Chest pain. 2. Coronary artery disease with stent to LAD in February of 2017. 3. Diabetes mellitus. 4. History of renal cell carcinoma, status post partial right kidney resection. 5. Diverticulitis. 6. History of Clostridium difficile colitis. 7. Chronic kidney disease. 8. Esophageal dilation. HOSPITAL COURSE: A 56-year-old man with a recent stent to his LAD, presented with chest pain. Trop onins were negative; EKG was nonischemic. Echocardiogram was unremarkable. He had an exercise nucl ear stress test, which was negative for ischemia. He had an upper GI series, which showed evidence of reflux, no evidence of a flow-limiting diverticulum. Chest pain was atypical in nature, as well. He also had some leg and back spasms, which were improved with Robaxin. He will be discharged wit h a short course of Robaxin for his muscle spasms. Otherwise, no changes were made to his cardiac m edications. He was seen in consultation by Dr. Yates of Cardiology, who agrees. /[id number]/MODL
== END 2017-05-14 16:56 | disposition home or self-care (01) ==
LOC: F2W 19:28
PROVIDERS: ADMIT Hospitalist; ATTEND Hospitalist
DX: R07.9 Chest pain, unspecified (principal); I25.10 Atherosclerotic heart disease of native coronary artery without angina pectoris; E11.9 Type 2 diabetes mellitus without complications; N18.9 Chronic kidney disease, unspecified; Z85.53 Personal history of malignant neoplasm of renal pelvis; K22.8 Other specified diseases of esophagus; Z82.49 Family history of ischemic heart disease and other diseases of the circulatory system; Z88.0 Allergy status to penicillin; Z88.2 Allergy status to sulfonamides
CPT/HCPCS: 71020; 74240; 78452; 93005; 93017; 93306; A9500; G0378; J1815

== ENCOUNTER → 2018-04-08 | Outpatient (CLI) | payer OTHER ==
[~2018-04-08] MED LIST: IOPAMIDOL (ISOVUE-300) 100 ML BTL ONE
== END ==
LOC: FIMAGING 10:24
PROVIDERS: ATTEND Specialist
DX: Z08 Encounter for follow-up examination after completed treatment for malignant neoplasm (principal); Z85.528 Personal history of other malignant neoplasm of kidney; Z90.5 Acquired absence of kidney
CPT/HCPCS: 82565-PO; Q9967

== ENCOUNTER → 2018-04-11 | Outpatient (CLI) | payer OTHER | LOC: CIMAGING 09:08 | PROVIDERS: ATTEND Internal Medicine | DX: R51 Headache (principal) | CPT/HCPCS: 70450-PO ==

== ENCOUNTER 2018-12-06 00:02 | Observation (INO) | payer OTHER ==
--- NOTE | 2018-12-06 00:40 | EDPHY ---
H & P Stated Complaint: right shoulder pain Time Seen by Provider: 12/06/18 00:40 HPI/ROS: HPI CHIEF COMPLAINT: [ ] HISTORY OF PRESENT ILLNESS: [Need 4: Location, Duration, Severity, Quality, Context, Timing Modifying Factors, Associated S&S] Past Medical History: Past Surgical History: Social History: Family History: ROS REVIEW OF SYSTEMS: 10 Systems were reviewed and negative with the exception of the elements mentioned in the history of present illness. Exam Constitutional triage nursing summary reviewed, vital signs reviewed, awake/ alert. Eyes normal conjunctivae and sclera, EOMI, PERRLA. HENT normal inspection, atraumatic, moist mucus membranes, no epistaxis, neck supple/ no meningismus, no raccoon eyes. Respiratory clear to auscultation bilaterally, normal breath sounds, no respiratory distress, no wheezing. Cardiovascular rate normal, regular rhythm, no murmur, no edema, distal pulses normal. Gastrointestinal soft, non-tender, no rebound, no guarding, normal bowel sounds, no distension, no pulsatile mass. Genitourinary no CVA tenderness. Musculoskeletal no midline vertebral tenderness, full range of motion, no calf swelling, no tenderness of extremities, no meningismus, good pulses, neurovascularly intact. Skin pink, warm, & dry, no rash, skin atraumatic. Neurologic awake, alert and oriented x 3, AAOx3, moves all 4 extremities equally, motor intact, sensory intact, CN II-XII intact, normal cerebellar, normal vision, normal speech. Psychiatric normal mood/affect. Heme/Lymph/Immune no lymphadenopathy. Differential Diagnosis: Medical Decision Making: Re-evaluation: Source: Patient - Personal History Current Tetanus/Diphtheria Vaccine: Yes Current Tetanus Diphtheria and Acellular Pertussis (TDAP): Yes - Medical/Surgical History Hx Asthma: No Hx Chronic Respiratory Disease: No Hx Diabetes: Yes Hx Cardiac Disease: Yes Hx Renal Disease: Yes Hx Cirrhosis: No Hx Alcoholism: No Hx HIV/AIDS: No Hx Splenectomy or Spleen Trauma: No Other PMH: cardiac stent placed in february2017,right partial nephrectomy kidney CA, ortho surg/l knee IDDM, ELEVATED CHOLESTEROL, HTN, HIATAL HERNIA - Social History Smoking Status: Never smoked Constitutional: Initial Vital Signs Temperature (C) 37.3 C 12/06/18 00:08 Heart Rate 90 12/06/18 00:08 Respiratory Rate 16 12/06/18 00:08 Blood Pressure 134/91 H 12/06/18 00:08 O2 Sat (%) 93 12/06/18 00:08 O2 Delivery Mode Room Air Allergies/Adverse Reactions: Penicillins Allergy (Severe, Verified 12/06/18 00:11) STOPPED BREATHING erythromycin base [Erythromycin Base] Allergy (Intermediate, Verified 12/06/18 00:11) Rash hydromorphone HCl [From Dilaudid] Allergy (Intermediate, Verified 12/06/18 00:11 ) Itching Sulfa (Sulfonamide Antibiotics) Allergy (Intermediate, Verified 12/06/18 00:11) Rash Home Medications: Medication Instructions Recorded Ascorbic Acid [Vitamin C 500 mg 1,000 mg PO DAILY 06/16/16 (*)] Atorvastatin Calcium [Lipitor 20 20 mg PO DAILY 06/16/16 mg (*)] Cholecalciferol Vit D3 [Vitamin D3 4,000 units PO DAILY 06/16/16 2000 units tab (OTC)] Esomeprazole Mag Trihydrate 40 mg PO DAILY 06/16/16 [Nexium] Glucosamine/Chondroitin 1 each PO DAILY 06/16/16 [Glucosamine/Chondroitin (*)] Herbals/Supplements -Info Only 1 ea PO DAILY 06/16/16 Magnesium Oxide [Magnesium Oxide 400 mg PO DAILY 06/16/16 400 mg (*)] [place]-3 Fatty Acids [Fish Oil 1000 1,000 mg PO DAILY 06/16/16 mg (*)] Vitamin B Complex [Super B-50 1 each PO DAILY 06/16/16 Complex] Insulin Glargine [Lantus 100 44 units SC HS 06/22/16 UNITS/ML] Exenatide Microspheres [Bydureon 2 mg SQ SA 03/04/17 Pen] Prasugrel HCl [Effient 10mg (*)] 10 mg PO DAILY #30 tab 03/06/17 Lisinopril [Zestril 10 mg (*)] 10 mg PO DAILY 05/13/17 Metformin HCl [Metformin 1000 mg] 1,000 mg PO BIDMEAL 05/13/17 Methocarbamol [Robaxin 750 mg (*)] 750 mg PO TID #30 tab 05/14/17 Insulin Glargine,Hum.rec.anlog 100 unit SQ 12/06/18 [Basaglar Kwikpen U-100] Prasugrel HCl 10 mg PO 12/06/18 Departure - Departure Condition: Good Referrals: Tucker Paz MD [Primary Care Provider] - As per Instructions
[2018-12-06] MEDS ORDERED: NS 1,000 ML IV ONE ×2 (00:43→01:02)
--- NOTE | 2018-12-06 00:51 | EDPHY ---
General - History Smoking Status: Never smoked Time Seen by Provider: 12/06/18 00:40 Narrative: CLINICAL IMPRESSION: Atraumatic right shoulder pain, hyperglycemia ASSESSMENT/PLAN: 58-year-old insulin-dependent type 2 diabetic with additional past medical history of hypertension, coronary artery disease status post stent, and renal cancer status post nephrectomy, presents to the emergency department with 2 days of progressively worsening atraumatic right shoulder pain. Patient reports no coinciding chest pain, shortness of breath, neck pain, neck stiffness , fever, chills, numbness or weakness to the arm hand or fingers. He did incidentally note hyperglycemia this evening with a blood glucose reading over 400 at home and 500 in the ED. He has no other physical complaints. Exam is not suggestive of hemarthrosis, septic joint, gouty arthritis, compartment syndrome, DVT, and there has been no history of trauma. Patient reports slightly increasing pain when turning his head to the right, has no midline neck pain. Remainder of physical exam reassuring, vital signs stable. X-rays of the right shoulder and cervical spine ordered, labs ordered, IV fluids initiated. Case signed out to Dr. Nuñez at 1:00 a.m. Who will assume care of this patient. DIFFERENTIAL DX: Differential includes but not limited to ligamentous shoulder injury, neuropathy 2 shoulder from neck injury or degenerative C-spine changes, hemarthrosis, septic joint, lytic lesion, fracture, brachial plexus injury ED PROCEDURES: See lab and/or imaging results below ED COURSE: Patient seen and examined by myself. At 12:50 a.m.. X-rays of the right shoulder and C-spine initiated, IV established, labs ordered, IV fluid bolus ordered. Case signed out to Dr. Nuñez at 1:00 a.m.. CHIEF COMPLAINT: Right shoulder pain HPI: 58-year-old male with past medical history of insulin-dependent type 2 diabetes , hypertensive, coronary artery disease, renal cancer status post nephrectomy, presents to the emergency department with 2 days of progressively worsening atraumatic right shoulder pain. Patient now at the point where he cannot move the shoulder due to pain. He has seen his chiropractor and had his "regular adjustments". He will return to his chiropractor today and was told there was nothing more he could do. He denies any neck or shoulder trauma although his partner reports they were caring heavy box out of cost go last weekend. There is no warmth or redness to the joint. He reports no numbness tingling or weakness to the hands or fingers. No history of chronic neck pain, degenerative joint disease, or prior rotator cuff injury. No arm swelling or history of DVT. He reports no chest pain or shortness of breath. Incidentally , patient was checking his glucose this evening and noted that his evening glucose was 470. He had already taken his 48 units of insulin this evening and took 10 units of Humalog. Repeat glucose upon arrival to the ER is over 500. Patient reports glucose normally runs in the 170s. He otherwise feels well, has not been ill, denies abdominal pain, headache, nausea, vomiting and dizziness. PAST MEDICAL HISTORY: Insulin-dependent type 2 diabetic, hypertensive, coronary artery disease status post stent, renal cancer status post nephrectomy See nurse/triage notes for additional history if applicable Pertinent Past Surgical History: Prior Ortho injuries Family History: Noncontributory Social History: Here with his partner REVIEW OF SYSTEMS: All other systems negative Constitutional: No fever, no chills, appetite change. Eyes: No discharge, vision change ENT: No sore throat, congestion, ear pain. Cardiovascular: No chest pain, no palpitations. Respiratory: No cough, no shortness of breath. Gastrointestinal: No abdominal pain, no vomiting, diarrhea. Genitourinary: No hematuria, dysuria, flank pain, pelvic pain Musculoskeletal: No back pain, joint swelling, positive for right shoulder joint pain, myalgias. Skin: No rashes, color change. Neurological: No headache, dizziness, weakness. PHYSICAL EXAM: General Appearance: Alert, oriented, appropriate, cooperative, NAD, well hydrated, non-toxic appearing, VSS, no hypoxia. Eyes: PERRLA, no acute vision change, nystagmus, swelling, discharge, pain or photosensitivity. Conjunctiva pink, no pallor or injection Neck: Supple, nontender, no lymphadenopathy, no midline pain, FROM, no meningismus. Mildly worsening right shoulder pain with turning head to the right. No reported numbness or weakness or tingling in the right hand. 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 No midline neck pain Respiratory: There are no retractions, lungs are clear to auscultation. Cardiac: Regular rate and rhythm, no murmurs or gallops. Gastrointestinal: Abdomen is soft, nontender, bowel sounds normal, no masses/ hernia, no rigidity, guarding or focal peritoneal findings. Neurological: [ Alert and oriented x 3, CN 2-12 grossly intact Skin: Warm, dry, no rashes, no nodules on palpation. Musculoskeletal: Extremities are symmetrical, no shoulder erythema, warmth or suggestion of septic joint. Reproducible pain to anterior and posterior deltoids. Patient has significant pain with both active and passive attempts at shoulder abduction. No evidence of biceps tendon injury. No obvious swelling or compartment syndrome. Distal neurovascular exam intact. Psychiatric: Patient is oriented X 3, there is no agitation. MEDICAL DECISION MAKING: Patient was seen independently. Secondary supervising physician at time of evaluation was Dr. Nuñez . Diagnosis: Atraumatic Right shoulder pain and hyperglycemia . New, requires workup Summary: See Assessment and Plan for summary of ED visit Clinical lab tests: ordered / reviewed. Independent visualization of images, tracing, or specimens: Yes / No. Decision to obtain medical records or history from someone other than the patient: Patient's partner Discussed patient with another provider: Dr Nuñez Patient Progress: Dispo pending, signed out to Dr. Nuñez at 0100. . (Rick Smith) Medical Decision MakinAM: Patient here with severe right shoulder pain since Sunday. No fever. No redness no swelling. Patient denies any significant injury. He is an insulin-dependent diabetic. Patient started noticing pain on Sunday and progressively getting worse. With any range of motion is right shoulder he has discomfort. He is tender on exam. His right arm is neurovascular intact distally. Also noted his blood sugars very high close to 500. He states never like this. Here in the emergency room at 3:30 a.m. The patient continues to have pain. IV morphine has been ordered. Subcutaneous insulin has been ordered for his high blood sugar. His x-rays I reviewed of the cervical spine and right shoulder unrevealing to me. Will proceed with MRI of his shoulder. Most likely need to be admitted for hyperglycemia and shoulder pain. 0447: Patient's blood sugar currently 203. Consult the hospitalist service Dr. Joshi, agrees to admit the patient. Patient is pending an MRI of his shoulder to rule out significant joint effusion. There is concern for infected joint however he does not have a fever, no significant redness however he has significant pain with range of motion of his right shoulder. Given his blood sugar being this high, will obtain MRI with without contrast of his shoulder joint. Will then admit to the hospitalist service for pain control Orthopedics to see. [id number]: Orthopedics consult Dr. Sanders, is concern for possible septic joint of the right shoulder given how much pain he has. And hyperglycemia. Patient time is back for MRI however I do not have MRI results. The patient be admitted to the hospitalist service for right-sided shoulder pain , hyperglycemia. Orthopedics Dr. Sanders will consult on the patient shoulder. Patient updated and agrees for admission. (John Nuñez) - Objective Vital Signs: Initial Vital Signs Temperature (C) 37.3 C 12/06/18 00:08 Heart Rate 90 12/06/18 00:08 Respiratory Rate 16 12/06/18 00:08 Blood Pressure 134/91 H 12/06/18 00:08 O2 Sat (%) 93 12/06/18 00:08 O2 Delivery Mode Room Air Allergies/Adverse Reactions: Penicillins Allergy (Severe, Verified 12/06/18 00:11) STOPPED BREATHING erythromycin base [Erythromycin Base] Allergy (Intermediate, Verified 12/06/18 00:11) Rash hydromorphone HCl [From Dilaudid] Allergy (Intermediate, Verified 12/06/18 00:11 ) Itching Sulfa (Sulfonamide Antibiotics) Allergy (Intermediate, Verified 12/06/18 00:11) Rash Home Medications: Medication Instructions Recorded Ascorbic Acid [Vitamin C 500 mg 1,000 mg PO DAILY 06/16/16 (*)] Atorvastatin Calcium [Lipitor 20 20 mg PO DAILY 06/16/16 mg (*)] Cholecalciferol Vit D3 [Vitamin D3 4,000 units PO DAILY 06/16/16 2000 units tab (OTC)] Esomeprazole Mag Trihydrate 40 mg PO DAILY 06/16/16 [Nexium] Glucosamine/Chondroitin 1 each PO DAILY 06/16/16 [Glucosamine/Chondroitin (*)] Herbals/Supplements -Info Only 1 ea PO DAILY 06/16/16 Magnesium Oxide [Magnesium Oxide 400 mg PO DAILY 06/16/16 400 mg (*)] [place]-3 Fatty Acids [Fish Oil 1000 1,000 mg PO DAILY 06/16/16 mg (*)] Vitamin B Complex [Super B-50 1 each PO DAILY 06/16/16 Complex] Insulin Glargine [Lantus 100 44 units SC HS 06/22/16 UNITS/ML] Exenatide Microspheres [Bydureon 2 mg SQ SA 03/04/17 Pen] Prasugrel HCl [Effient 10mg (*)] 10 mg PO DAILY #30 tab 03/06/17 Lisinopril [Zestril 10 mg (*)] 10 mg PO DAILY 05/13/17 Metformin HCl [Metformin 1000 mg] 1,000 mg PO BIDMEAL 05/13/17 Methocarbamol [Robaxin 750 mg (*)] 750 mg PO TID #30 tab 05/14/17 Insulin Glargine,Hum.rec.anlog 100 unit SQ 12/06/18 [Basaglar Kwikpen U-100] Prasugrel HCl 10 mg PO 12/06/18 Laboratory Results: Laboratory Results 12/06/18 00:50 12/06/18 00:50 12/06/18 12/06/18 12/06/18 02:20 00:50 00:50 WBC RBC Hgb Hct MCV MCH MCHC RDW Plt Count MPV Neut % (Auto) Lymph % (Auto) Clinch % (Auto) Eos % (Auto) Baso % (Auto) Nucleat RBC Rel Count Absolute Neuts (auto) Absolute Lymphs (auto) Absolute Monos (auto) Absolute Eos (auto) Absolute Basos (auto) Absolute Nucleated RBC Immature Gran % Immature Gran # VBG Lactic Acid 1.4 mmol/L mmol/L (0.7-2.1) Sodium 132 mEq/L L mEq/L (135-145) Potassium 4.5 mEq/L mEq/L (3.5-5.2) Chloride 102 mEq/L mEq/L (97-110) Carbon Dioxide 20 mEq/l L mEq/l (22-31) Anion Gap 10 mEq/L mEq/L (6-14) BUN 23 mg/dL mg/dL (7-23) Creatinine 1.2 mg/dL mg/dL (0.7-1.3) Estimated GFR Not Reported Glucose 484 mg/dL H mg/dL (70-100) Calcium 9.0 mg/dL mg/dL (8.5-10.4) Urine Color PALE YELLOW Urine Appearance HAZY Urine pH 5.0 (5.0-7.5) Ur Specific [place] 1.029 (1.002-1.030) Urine Protein NEGATIVE (NEGATIVE) Urine Ketones NEGATIVE (NEGATIVE) Urine Blood NEGATIVE (NEGATIVE) Urine Nitrate NEGATIVE (NEGATIVE) Urine Bilirubin NEGATIVE (NEGATIVE) Urine Urobilinogen NEGATIVE EU EU (0.2-1.0) Ur Leukocyte Esterase NEGATIVE (NEGATIVE) Urine RBC 1-3 /hpf /hpf (0-3) Urine WBC 1-3 /hpf /hpf (0-3) Ur Epithelial Cells TRACE /lpf /lpf (NONE-1+) Urine Glucose 3+ H (NEGATIVE) 12/06/18 00:50 WBC 8.48 10^3/uL 10^3/uL (3.80-9.50) RBC 4.39 10^6/uL L 10^6/uL (4.40-6.38) Hgb 12.5 g/dL L g/dL (13.7-17.5) Hct 37.5 % L % (40.0-51.0) MCV 85.4 fL fL (81.5-99.8) MCH 28.5 pg pg (27.9-34.1) MCHC 33.3 g/dL g/dL (32.4-36.7) RDW 12.5 % % (11.5-15.2) Plt Count 332 10^3/uL 10^3/uL (150-400) MPV 9.4 fL fL (8.7-11.7) Neut % (Auto) 52.3 % % (39.3-74.2) Lymph % (Auto) 34.6 % % (15.0-45.0) Clinch % (Auto) 9.7 % % (4.5-13.0) Eos % (Auto) 2.4 % % (0.6-7.6) Baso % (Auto) 0.8 % % (0.3-1.7) Nucleat RBC Rel Count 0.0 % % (0.0-0.2) Absolute Neuts (auto) 4.44 10^3/uL 10^3/uL (1.70-6.50) Absolute Lymphs (auto) 2.93 10^3/uL 10^3/uL (1.00-3.00) Absolute Monos (auto) 0.82 10^3/uL H 10^3/uL (0.30-0.80) Absolute Eos (auto) 0.20 10^3/uL 10^3/uL (0.03-0.40) Absolute Basos (auto) 0.07 10^3/uL 10^3/uL (0.02-0.10) Absolute Nucleated RBC 0.00 10^3/uL 10^3/uL (0-0.01) Immature Gran % 0.2 % % (0.0-1.1) Immature Gran # 0.02 10^3/uL 10^3/uL (0.00-0.10) VBG Lactic Acid Sodium Potassium Chloride Carbon Dioxide Anion Gap BUN Creatinine Estimated GFR Glucose Calcium Urine Color Urine Appearance Urine pH Ur Specific [place] Urine Protein Urine Ketones Urine Blood Urine Nitrate Urine Bilirubin Urine Urobilinogen Ur Leukocyte Esterase Urine RBC Urine WBC Ur Epithelial Cells Urine Glucose Medications Given: Discontinued Medications Fentanyl (Sublimaze) 75 mcg IVP EDNOW ONE Stop: 12/06/18 06:48 Last Admin: 12/06/18 06:51 Dose: 75 mcg Sodium Chloride (Ns) 1,000 mls @ 0 mls/hr IV EDNOW ONE; Wide Open PRN Reason: Protocol Stop: 12/06/18 00:44 Last Admin: 12/06/18 00:53 Dose: 1,000 mls Sodium Chloride (Ns) 1,000 mls @ 0 mls/hr IV ONCE ONE PRN Reason: Wide Open Stop: 12/06/18 01:03 Last Admin: 12/06/18 01:29 Dose: 1,000 mls Insulin Human Regular (Humulin R) 8 unit SC EDNOW ONE Stop: 12/06/18 03:33 Last Admin: 12/06/18 03:37 Dose: 8 units Morphine Sulfate (Morphine) 4 mg IVP EDNOW ONE Stop: 12/06/18 03:09 Last Admin: 12/06/18 03:13 Dose: 4 mg Morphine Sulfate (Morphine) 4 mg IVP EDNOW ONE Stop: 12/06/18 03:44 Last Admin: 12/06/18 03:48 Dose: 4 mg Departure - Departure Disposition: [facility] Inpatient Acute Clinical Impression: Hyperglycemia, Shoulder pain Condition: Good
[2018-12-06 02:51] LABS: PLATELET COUNT 332 10^3/uL (150-400)
[2018-12-06] MEDS ORDERED: INSULIN REGULAR HUMAN 100 UNIT/ML UNIT SC ONE (03:32)
[2018-12-06] MEDS ORDERED: HYDROmorphONE/DILAUDID 1 MG/ML INJ IVP PRN (04:42)
[2018-12-06] MEDS ORDERED: ONDANSETRON 4 MG/2 ML VIAL IVP PRN (04:42)
[2018-12-06] MEDS ORDERED: ACETAMINOPHEN 325 MG TAB PO PRN (04:42)
[2018-12-06] MEDS ORDERED: ONDANSETRON DISINTEGRATING 4 MG TAB PO PRN (04:42)
[2018-12-06] MEDS ORDERED: GADOBUTROL 10 ML VIAL IVP ONE (05:23)
--- NOTE | 2018-12-06 06:38 | PDGENHP ---
History and Physical - Chief Complaint R shoulder pain - History of Present Illness 58 yo M w/ hx of IDDM and CAD presents with R shoulder pain. The patient tells me he first noted R shoulder pain on Sunday (3 days [employer]) while sleeping. The pain has progressed since. He describes 10/10 pain, like "ice picks" being dug into his shoulder. He points at all aspects of the shoulder joint when describing the pain. He is unable to range the joint in any direction for me and is extremely tender over the AC joint. In addition, he became concerned because his blood glucose has been elevated the last few days. His last reading at home before heading to the ER was in the 500's. He usually takes insulin glargine 44 units nightly and oral medications in addition. He denies fevers and chills. Case discussed with ED physician Dr. Goldberg; records reviewed and summarized above. History Information - Allergies/Home Medication List Allergies/Adverse Reactions: Penicillins Allergy (Severe, Verified 12/06/18 00:11) STOPPED BREATHING erythromycin base [Erythromycin Base] Allergy (Intermediate, Verified 12/06/18 00:11) Rash hydromorphone HCl [From Dilaudid] Allergy (Intermediate, Verified 12/06/18 00:11 ) Itching Sulfa (Sulfonamide Antibiotics) Allergy (Intermediate, Verified 12/06/18 00:11) Rash Home Medications: Ascorbic Acid [Vitamin C 500 mg (*)] 1,000 mg PO DAILY 06/16/16 [Last Taken ] Atorvastatin Calcium [Lipitor 20 mg (*)] 20 mg PO DAILY 06/16/16 [Last Taken ] Cholecalciferol Vit D3 [Vitamin D3 2000 units tab (OTC)] 4,000 units PO DAILY [Last Taken 05/13/17] Esomeprazole Mag Trihydrate [Nexium] 40 mg PO DAILY 06/16/16 [Last Taken ] Glucosamine/Chondroitin [Glucosamine/Chondroitin (*)] 1 each PO DAILY 06/16/16 [ Last Taken 05/13/17] Herbals/Supplements -Info Only 1 ea PO DAILY 06/16/16 [Last Taken 05/13/17] Magnesium Oxide [Magnesium Oxide 400 mg (*)] 400 mg PO DAILY 06/16/16 [Last Taken 05/13/17] [place]-3 Fatty Acids [Fish Oil 1000 mg (*)] 1,000 mg PO DAILY 06/16/16 [Last Taken 05/13/17] Vitamin B Complex [Super B-50 Complex] 1 each PO DAILY 06/16/16 [Last Taken ] Insulin Glargine [Lantus 100 UNITS/ML] 44 units SC HS 06/22/16 [Last Taken 05/12] Exenatide Microspheres [Bydureon Pen] 2 mg SQ SA 03/04/17 [Last Taken 05/12/17] Lisinopril [Zestril 10 mg (*)] 10 mg PO DAILY 05/13/17 [Last Taken 05/13/17] Metformin HCl [Metformin 1000 mg] 1,000 mg PO BIDMEAL 05/13/17 [Last Taken 05/13] Insulin Glargine,Hum.rec.anlog [Basaglar Kwikpen U-100] 100 unit SQ 12/06/18 [ Last Taken Unknown] Prasugrel HCl 10 mg PO 12/06/18 [Last Taken Unknown] I have personally reviewed and updated: family history, medical history - Past Medical History diabetes type 2 Additional medical history: renal insufficiency - Surgical History Additional surgical history: nephrectomy - Family History Positive for: father with history of CAD younger than 55, mother with history of CAD younger than 65, myocardial infarction Additional family history: father with SD at age 45, mother with SD at age 61 - Social History Smoking Status: Never smoked Additional social history: normally independent in ADLs, travels extensively for work Review of Systems Review of Systems: ROS: 10pt was reviewed & negative except for what was stated in HPI & below Physical Exam Physical Exam: Temp Pulse Resp BP Pulse Ox 37.3 C 65 18 132/89 H 96 12/06/18 00:08 12/06/18 03:16 12/06/18 03:16 12/06/18 03:16 12/06/18 03:16 Constitutional: appears nourished, uncomfortable Eyes: PERRL Ears, Nose, Mouth, Throat: moist mucous membranes, no oral mucosal ulcers Cardiovascular: regular rate and rhythym, no murmur, rub, or gallop Respiratory: no respiratory distress, clear to auscultation Gastrointestinal: normoactive bowel sounds, soft, non-tender abdomen Skin: warm, normal color Musculoskeletal: pain with ROM (R shoulder), muscular tenderness Neurologic: AAOx3, CN II-XII Intact Psychiatric: interacting appropriately, not anxious Lab Data & Imaging Review 12/06/18 00:50 12/06/18 00:50 WBC 8.48 10^3/uL (3.80-9.50) 12/06/18 00:50 RBC 4.39 10^6/uL (4.40-6.38) L 12/06/18 00:50 Hgb 12.5 g/dL (13.7-17.5) L 12/06/18 00:50 Hct 37.5 % (40.0-51.0) L 12/06/18 00:50 MCV 85.4 fL (81.5-99.8) 12/06/18 00:50 MCH 28.5 pg (27.9-34.1) 12/06/18 00:50 MCHC 33.3 g/dL (32.4-36.7) 12/06/18 00:50 RDW 12.5 % (11.5-15.2) 12/06/18 00:50 Plt Count 332 10^3/uL (150-400) 12/06/18 00:50 MPV 9.4 fL (8.7-11.7) 12/06/18 00:50 Neut % (Auto) 52.3 % (39.3-74.2) 12/06/18 00:50 Lymph % (Auto) 34.6 % (15.0-45.0) 12/06/18 00:50 Charles % (Auto) 9.7 % (4.5-13.0) 12/06/18 00:50 Eos % (Auto) 2.4 % (0.6-7.6) 12/06/18 00:50 Baso % (Auto) 0.8 % (0.3-1.7) 12/06/18 00:50 Nucleat RBC Rel Count 0.0 % (0.0-0.2) 12/06/18 00:50 Absolute Neuts (auto) 4.44 10^3/uL (1.70-6.50) 12/06/18 00:50 Absolute Lymphs (auto) 2.93 10^3/uL (1.00-3.00) 12/06/18 00:50 Absolute Monos (auto) 0.82 10^3/uL (0.30-0.80) H 12/06/18 00:50 Absolute Eos (auto) 0.20 10^3/uL (0.03-0.40) 12/06/18 00:50 Absolute Basos (auto) 0.07 10^3/uL (0.02-0.10) 12/06/18 00:50 Absolute Nucleated RBC 0.00 10^3/uL (0-0.01) 12/06/18 00:50 Immature Gran % 0.2 % (0.0-1.1) 12/06/18 00:50 Immature Gran # 0.02 10^3/uL (0.00-0.10) 12/06/18 00:50 VBG Lactic Acid 1.4 mmol/L (0.7-2.1) 12/06/18 00:50 Sodium 132 mEq/L (135-145) L 12/06/18 00:50 Potassium 4.5 mEq/L (3.5-5.2) 12/06/18 00:50 Chloride 102 mEq/L (97-110) 12/06/18 00:50 Carbon Dioxide 20 mEq/l (22-31) L 12/06/18 00:50 Anion Gap 10 mEq/L (6-14) 12/06/18 00:50 BUN 23 mg/dL (7-23) 12/06/18 00:50 Creatinine 1.2 mg/dL (0.7-1.3) 12/06/18 00:50 Estimated GFR Not Reported 12/06/18 00:50 Glucose 484 mg/dL (70-100) H 12/06/18 00:50 POC Glucose 203 mg/dL (70-100) H 12/06/18 04:46 Calcium 9.0 mg/dL (8.5-10.4) 12/06/18 00:50 Urine Color PALE YELLOW 12/06/18 02:20 Urine Appearance HAZY 12/06/18 02:20 Urine pH 5.0 (5.0-7.5) 12/06/18 02:20 Ur Specific [place] 1.029 (1.002-1.030) 12/06/18 02:20 Urine Protein NEGATIVE (NEGATIVE) 12/06/18 02:20 Urine Ketones NEGATIVE (NEGATIVE) 12/06/18 02:20 Urine Blood NEGATIVE (NEGATIVE) 12/06/18 02:20 Urine Nitrate NEGATIVE (NEGATIVE) 12/06/18 02:20 Urine Bilirubin NEGATIVE (NEGATIVE) 12/06/18 02:20 Urine Urobilinogen NEGATIVE EU (0.2-1.0) 12/06/18 02:20 Ur Leukocyte Esterase NEGATIVE (NEGATIVE) 12/06/18 02:20 Urine RBC 1-3 /hpf (0-3) 12/06/18 02:20 Urine WBC 1-3 /hpf (0-3) 12/06/18 02:20 Ur Epithelial Cells TRACE /lpf (NONE-1+) 12/06/18 02:20 Urine Glucose 3+ (NEGATIVE) H 12/06/18 02:20 Assessment & Plan Assessment: 58 yo M w/ IDDM and CAD presents with shoulder pain and hyperglycemia. Plan: 1. R shoulder pain - Unclear etiology; the pain seems out of proportion for MSK pain, especially noting he had no obvious injury to the joint. Infection is a concern noting severe pain with ROM and elevated blood glucose. - MRI for further evaluation - Will need orthopedics consult 2. IDDM c/b hyperglycemia - He is compliant with insulin glargine 44 u nightly and orals at home. He took his meds yesterday but still noted BG >500, no evidence of DKA on admission. Hyperglycemia is likely due to either catecholamine surge from pain or possible infection. - Continue home basal insulin pending reconciliation - Will order insulin lispro standard SSI for now - D50 IV PRN for hypoglycemia, monitor BG ACHS 3. CAD - S/p stent placement 2 years ago per patient. - Continue ASA, statin 4. Hx nephrectomy - Due to localized malignancy Diet - NPO pending surgical evaluation Code - Full Ppx - SCDs Dispo - Admit under observation status
[2018-12-06] MEDS ORDERED: fentaNYL 100 MCG/2 ML INJ ONE (06:43)
[2018-12-06] MEDS ORDERED: fentaNYL 100 MCG/2 ML INJ IVP ONE (06:47)
[2018-12-06] MEDS: INSULIN LISPRO 100 UNIT/ML SC SCH ×3 (09:09→18:46)
[2018-12-06] MEDS: D50W 25 GM/50 ML VIAL IVP PRN ×2 (09:18→13:28)
--- NOTE | 2018-12-06 09:32 | ASMTCMCOM ---
CM Note CM Note Notes: Pt is a 58 year old M presents with shoulder pain and hyperglycemia, has history of IDDM and CAD. Ortho consult ordered. No therapies ordered at this time. Pt lives with life partner. Pt will likely be independent, CM available if needs may arise. Plan: Independent. Date Signed: 12/06/2018 09:31 AM Electronically Signed By:NIKIA Tirado
[2018-12-06] MEDS: oxyCODONE IR 5 MG TAB PO PRN ×2 (11:57→15:13)
[2018-12-06] MEDS ORDERED: LIDOCAINE 1% 300 MG/30 ML SDV ONE (12:04)
--- NOTE | 2018-12-06 12:16 | GCON ---
[f rep st] CONSULTATION EMERGENCY ROOM CONSULT NOTE DATE OF CONSULTATION: 12/06/2018 CHIEF COMPLAINT: Right shoulder pain. HISTORY OF PRESENT ILLNESS: A 58-year-old male who is an insulin-dependent diabetic presented with s houlder pain. He said this began on Sunday. It has been getting gradually worse. Last night, it b ecame excruciating bad and 10/10 pain, described as stabbing pain in the anterior and lateral parts o f his shoulder and is very tender for moving in any direction. He also became concerned because his blood sugar was elevated in the 500s. He presented the emergency room where he was worked up. PAST MEDICAL HISTORY: Diabetes type 2 and renal insufficiency. PAST SURGICAL HISTORY: Nephrectomy. FAMILY HISTORY: Significant for coronary artery disease. SOCIAL HISTORY: Never smoked. He lives independently. MEDICATIONS: Please see medication list. ALLERGIES: Please see inpatient allergy list. REVIEW OF SYSTEMS: Negative other than the extreme shoulder pain. He specifically denies fevers, ch ills. PHYSICAL EXAMINATION: GENERAL: He is alert, oriented. VITAL SIGNS: Stable. He is afebrile. CONS TITUTIONAL: He appears comfortable in bed. HEENT: His head is normocephalic and atraumatic. His e yes are equal and reactive. His mouth shows moist mucous membranes. NECK: Supple. CARDIOVASCULAR: Regular rate and rhythm. CHEST: His respiratory shows a good respiratory effort. ABDOMEN: Soft. EXTREMITIES: His lower extremities move well, without abnormalities. Neurovascular intact, 5/5 st rength. Good pulses and sensation. No areas of tenderness. His left shoulder he can move well with no pain. His left upper extremity is intact with 5/5 strength. Good pulses and sensations. Right shoulder is tender to palpation, particularly anteriorly. I can internally rotate the shoulder about 70 degrees. I can externally rotate it about 10. I can passively abduct him to 70 degrees and forw pedro flex him to 70 degrees. He actively abducts and flexes to 30 degrees, and this is painful for hi m. There is no redness, and his shoulder appears minimally swollen. He can move his elbow and wrist well. He is neurovascularly intact in his hand. No numbness. Good pulses and sensation. LABORATORY STUDIES: His labs show white count of 8.4. His lactic acid is normal at 1.4. IMAGING: X-rays show normal shoulder pathology. MRI shows rotator cuff calcific tendinitis, subacro mial bursitis as well as some fluid from the subacromial bursa just anterior to the shoulder. The tyree does not have excess fluid, and I reviewed the MRI with musculoskeletal radiologist, and this was not concerning for a true glenohumeral joint infection, though we did a small fluid collection fr om the shoulder. ASSESSMENT: Right shoulder adhesive capsulitis and subacromial bursitis with anterior fluid collecti on. PLAN: I did discuss this with Dr. Clark with Interventional Radiology. I do not feel the shoulder is infected. It is possible the fluid anterior to his shoulder could be an abscess, though I think t his is unlikely. I think the most likely diagnosis is adhesive capsulitis. Given his extreme pain, however, we will send him to Interventional Radiology for an ultrasound-guided aspiration of the flui d collection anterior to the shoulder. This can be sent then for crystal cell count and fluid and cu ltures. If this does come back as an abscess, he may require a formal I and D through an anterior ap proach to the space in front of the shoulder. Would likely not enter the shoulder as I do not think this is infected. If this is not infected, we will treatment him with conservative management with p hysical therapy, pain medication. /[id number]/MODL
--- NOTE | 2018-12-06 16:02 | HOSPPROG ---
Hospitalist Progress Note Assessment/Plan: 58 yo M w/ IDDM and CAD presents with shoulder pain and hyperglycemia. Plan: 1. R shoulder pain - MRI with likely adhesive capsulitis and partial supraspinatus tear. Seen by ortho who recommends IR guided aspiration. aspiration obtained, and awaiting fluid analysis. If no evidence of abscess or infection, then treatment with PT/OT and outpatient follow up with ortho. 2. IDDM c/b hyperglycemia - He is compliant with insulin glargine 44 u nightly and orals at home. He took his meds yesterday but still noted BG >500, no evidence of DKA on admission. Hyperglycemia is likely due to either catecholamine surge from pain or possible infection. Then had hypoglycemia this morning despite no insulin. - Has had hypoglycemia since this am. -order diet now that procedures done, - Will order insulin lispro standard SSI for now - D50 IV PRN for hypoglycemia, monitor BG ACHS 3. CAD - S/p stent placement 2 years ago per patient. - Continue ASA, statin 4. Hx nephrectomy - Due to localized malignancy Diet - regular diet for hypoglycemia Code - Full Ppx - SCDs Dispo - Admit under observation status, likely discharge in am unless fluid consistent with infection. Subjective: right shoulder hurts. wants to eat Objective: Vital Signs Temp Pulse Resp BP Pulse Ox 37.3 C 76 15 136/72 H 92 12/06/18 15:39 12/06/18 15:39 12/06/18 15:39 12/06/18 15:39 12/06/18 15:39 Microbiology 12/06/18 13:20 Gram Stain - Final Shoulder - Aspirate 12/05/18 12/06/18 12/07/18 05:59 05:59 05:59 Intake Total 2049 Balance 2049 - Physical Exam Constitutional: no apparent distress, appears nourished, not in pain Eyes: PERRL, anicteric sclera, EOMI Ears, Nose, Mouth, Throat: moist mucous membranes, hearing normal, ears appear normal, no oral mucosal ulcers Cardiovascular: regular rate and rhythym, no murmur, rub, or gallop Respiratory: no respiratory distress, no rales or rhonchi, clear to auscultation Gastrointestinal: normoactive bowel sounds, soft, non-tender abdomen, no palpable masses Genitourinary: no bladder fullness, no bladder tenderness, no renal bruits Skin: no rashes or abrasions, no fluctuance, no induration Musculoskeletal: other (right arm with extreme pain with any movement. ) Neurologic: AAOx3, sensation intact bilaterally Psychiatric: interacting appropriately, not anxious, not encephalopathic, thought process linear Lymph, Heme, Immunologic: no cervical LAD, no supraclavicular LAD ICD10 Worksheet Patient Problems: Problems Problem Status Onset Hyperglycemia Acute Shoulder pain Acute C. difficile diarrhea Acute 07/24/16 Chest pain Acute Chest pain Acute Right renal mass Acute
[2018-12-06] MEDS ORDERED: diphenhydrAMINE 25 MG CAP PO ONE (19:17)
[2018-12-06] MEDS: CYCLOBENZAPRINE 10 MG TAB PO PRN (22:00)
[2018-12-07] MEDS: CYCLOBENZAPRINE 10 MG TAB PO PRN (05:35)
--- NOTE | 2018-12-07 08:33 | SOAPPROG ---
SOAP Progress Note Assessment/Plan: Assessment: R shoulder adhesive capsulitis Plan: gram stain neg, fluid not concerning for infection will cont to follow cultures PT/OT for rom- will need this as outpatient as well and he has a PT in mind consider short course of oral steriods if this is ok from a glycemic control standpoint may d/c from my perspective and follow up with me in clinic this week call [phone] if questions 12/07/18 08:30 Subjective: pain in right shoulder about the same Objective: Vital Signs Temp Pulse Resp BP Pulse Ox 37.2 C 76 18 134/85 H 93 12/07/18 06:25 12/07/18 03:16 12/07/18 03:16 12/07/18 03:16 12/07/18 03:16 Microbiology 12/06/18 13:20 Gram Stain - Final Shoulder - Aspirate 12/06/18 12/07/18 12/08/18 05:59 05:59 05:59 Intake Total 2825 Balance 2825 mild swelling, ttp anteriorly, looks similar to yesterday ICD10 Worksheet Patient Problems: Problems Problem Status Onset Hyperglycemia Acute Shoulder pain Acute C. difficile diarrhea Acute 07/24/16 Chest pain Acute Chest pain Acute Right renal mass Acute
[2018-12-07] MEDS: INSULIN LISPRO 100 UNIT/ML SC SCH ×2 (08:55→13:15)
[2018-12-07] MEDS ORDERED: predniSONE 20 MG TAB PO ONE (09:31)
[2018-12-07 11:53] VITALS: BP 138/79
--- NOTE | 2018-12-07 21:15 | GDS ---
[f rep st] DISCHARGE SUMMARY DISCHARGE DIAGNOSES: 1. Right shoulder adhesive capsulitis. 2. Moderate tendinopathy/partial tear at the distal supraspinatus tendon. 3. Type 1 diabetes. 4. Hypoglycemia. 5. Coronary artery disease. 6. History of nephrectomy. CONSULTATIONS: Orthopedics. HISTORY OF PRESENT ILLNESS: A 58-year-old male with CAD, type 1 diabetes, presenting with right shou lder pain that started Sunday while sleeping. Pain has progressed and is 10/10. Feels like ice pic ks being dug into his shoulder. He is unable to move the joint in any direction. HOSPITAL COURSE BY PROBLEM: 1. Right shoulder pain: Dr. Wilkerson with Orthopedics was consulted. MRI showed a partial tear of di stal supraspinatus tendon along with adhesive capsulitis. It was aspirated. Cultures have remained negative thus far. Continue pain management with Flexeril. Schedule Tylenol and short burst of pred nisone. I counseled him on monitoring his glucose levels. 2. Type 1 diabetes: On insulin. Reports lows at home less than 70. This was evident here several days as well. I advised him to decrease his insulin from 48 units to 44 at home, though he may have a spike over next couple days with prednisone. He should follow up closely with his PCP. 3. CAD: No chest pain. Continue statin, Zestril. 4. Fever: Fever early this morning. Gram stain is negative. Cultures are pending. We will hold o ff on antibiotics at this time. If cultures turn positive, we will call patient to return for antibi otics. DISPOSITION: Patient is stable for discharge home. We will arrange for PT per their recommendations . FOLLOWUP: 1. Dr. Wilkerson. 2. Labs pending, cultures from shoulder aspiration. NEW MEDICATIONS: Prednisone, Flexeril, Tylenol. PHYSICAL EXAMINATION: VITAL SIGNS: Today, temperature 36.4 blood pressure 122/75, heart rate in the 80s, respirations 14, 91% on room air. GENERAL: Obese male, uncomfortable but no acute distress. HEENT: PERRLA. Moist mucous membranes. CV: Regular rate and rhythm. LUNGS: Clear. ABDOMEN: So ft, nontender, nondistended. Positive bowel sounds. : No Minor. MUSCULOSKELETAL: Right shoulde r mildly swollen, very limited range of motion due to pain. No warmth or redness over the joints. N EURO: 2 through 12 intact. PSYCH: Alert and oriented x3. TIME SPENT ON DISCHARGE: Greater than 30 minutes bedside with patient, counseling on medications and followup plan. /[id number]/MODL
== END 2018-12-07 13:43 | disposition home or self-care (01) ==
LOC: F3E 08:02
PROVIDERS: ADMIT Student in an Organized Health Care Education/Training Program; ATTEND Student in an Organized Health Care Education/Training Program
DX: M75.01 Adhesive capsulitis of right shoulder (principal); M75.111 Incomplete rotator cuff tear or rupture of right shoulder, not specified as traumatic; M19.011 Primary osteoarthritis, right shoulder; M75.31 Calcific tendinitis of right shoulder; E11.65 Type 2 diabetes mellitus with hyperglycemia; I25.10 Atherosclerotic heart disease of native coronary artery without angina pectoris; E86.9 Volume depletion, unspecified; Z85.528 Personal history of other malignant neoplasm of kidney; Z90.5 Acquired absence of kidney; Z95.5 Presence of coronary angioplasty implant and graft; Z79.4 Long term (current) use of insulin
CPT/HCPCS: 72040; 73030; 73223; 76942; 96361; 96372; 96374; 96375; 96376; 97161; 99285; G0378; A9585; J1815; J2270; J3010; J7512

== ENCOUNTER 2019-03-23 11:40 | Emergency (ER) | payer OTHER | END 2019-03-23 16:42 | disposition home or self-care (01) ==